=== PATIENT | female | born 1940 | race Caucasian/White ===

== ENCOUNTER → 2018-02-22 09:18 | Outpatient (CLI) | payer OTHER, SELFPAY ==
[2018-02-22 11:18] LABS: Alanine Aminotransferase 68 IU/L (9-52); Albumin 3.9 g/dL (3.5-5.0); Albumin Globulin Ratio 1.3 (1.0-2.8); Alkaline Phosphatase 76 U/L (38-126); Aspartate Aminotransferase 48 IU/L (14-36); Bilirubin Total 0.5 mg/dL (0.2-1.3); Bilirubin Unconjugated 0.3 mg/dL (0.0-1.1); Cholesterol 181 mg/dL (140-199); HDL Cholesterol 44 mg/dL (40-60); HEMOLYSIS < 15 (0-50); LDL Cholesterol Calculated 113 mg/dL (<100); Total Protein 6.9 g/dL (6.3-8.2); Triglycerides 122 mg/dL (35-150)
[2018-02-22 11:58] LABS: Vitamin B12 734 pg/mL (239-931)
== END ==
PROVIDERS: Family Provider Physician Assistant; PCP Physician Assistant; Visit Provider Physician Assistant
DX: E78.5 Hyperlipidemia, unspecified (principal); R42 Dizziness and giddiness; E53.8 Deficiency of other specified B group vitamins; M79.1 Myalgia
CPT/HCPCS: 36415; 80061; 80076; 82607

== ENCOUNTER → 2018-05-09 16:13 | Outpatient (CLI) | payer OTHER, SELFPAY ==
--- NOTE | 2018-05-09 16:19 | DI.RAD.S_ITS ---
PROCEDURE: XR LUMBAR SPINE 2-3V INDICATIONS: Low back pain TECHNIQUE: 3 views of the lumbar spine were acquired. COMPARISON: [facility], CR, XR CHEST 2V, 05/09/2018, 16:15. FINDINGS: Bones: 6 [id number] vertebrae are present. On chest x-ray, there appear to be 12 rib vertebrae. 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 The transverse processes of L1. Elongated on the right. There is accentuated lordosis with mild retrolisthesis at L3-4, anterolisthesis at L4-5 and L5-S1. Multilevel disc narrowing is most marked at L5-S1. There is a rudimentary disc at S1-2. Facet arthropathy is evident at L4-5 and L5-S1. No vertebral body compression fractures. No suspicious bony lesions. Soft tissues: Overlying bowel gas pattern is normal. Vascular calcifications. 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 Mild malalignment and accentuated lordosis. Facet arthropathy and multilevel disc degeneration. Dictated by: Guillaume Erickson M.D. on 05/09/2018 at 16:55 Approved by: Guillaume Erickson M.D. on 05/09/2018 at 17:02
--- NOTE | 2018-05-09 16:19 | DI.RAD.S_ITS ---
PROCEDURE: XR CHEST 2V INDICATIONS: Persistant cough TECHNIQUE: 2 views of the chest were acquired. COMPARISON: None. FINDINGS: Surgical changes and devices: None. Lungs and pleura: No pleural effusions or pneumothorax. Lungs are clear. Mediastinum: Mediastinal contours are normal. Heart size is normal. Tortuous aorta. Bones and chest wall: No suspicious bony abnormalities. Soft tissues appear unremarkable. IMPRESSION: No acute cardiopulmonary abnormality Dictated by: Guillaume Erickson M.D. on 05/09/2018 at 16:54 Approved by: Guillaume Erickson M.D. on 05/09/2018 at 16:55
== END ==
PROVIDERS: Family Provider Physician Assistant; PCP Physician Assistant; Visit Provider Physician Assistant
DX: M47.817 Spondylosis without myelopathy or radiculopathy, lumbosacral region (principal); M47.816 Spondylosis without myelopathy or radiculopathy, lumbar region; M51.37 Other intervertebral disc degeneration, lumbosacral region; M51.36 Other intervertebral disc degeneration, lumbar region; R05 Cough; M54.5 Low back pain; M40.56 Lordosis, unspecified, lumbar region
CPT/HCPCS: 71046; 72100

== ENCOUNTER → 2018-05-15 10:32 | Outpatient (CLI) | payer OTHER, SELFPAY ==
--- NOTE | 2018-05-15 10:34 | DI.RAD.S_ITS ---
PROCEDURE: FL BARIUM SWALLOW INDICATIONS: Persistant cough; chest discomfort COMPARISON: None. FINDINGS: Function: There is normal esophageal peristalsis. No elicited gastroesophageal reflux. Morphology: Air-contrast images demonstrate normal mucosal morphology. Single contrast views show no esophageal strictures, extrinsic mass effects, or diverticula. Limited images of the stomach demonstrate normal appearance. IMPRESSION: Normal examination, no aspiration or reflux found. Dictated by: Sha Byrd M.D. on 05/15/2018 at 14:41 Approved by: Sha Byrd M.D. on 05/15/2018 at 14:42
== END ==
PROVIDERS: Family Provider Physician Assistant; PCP Physician Assistant; Visit Provider Physician Assistant
DX: R05 Cough (principal); R07.89 Other chest pain
CPT/HCPCS: 74220

== ENCOUNTER → 2018-05-22 07:22 | Outpatient (CLI) | payer OTHER, SELFPAY ==
--- NOTE | 2018-05-22 07:26 | DI.MRI.S_ITS ---
PROCEDURE: MR LUMBAR SPINE WO CON INDICATIONS: Severe low back pain radiates into hips TECHNIQUE: Noncontrast sagittal T1 spin echo and T2 fast echo, sagittal STIR, axial T1 and T2 fast spin echo through the lumbar spine. In cases with scoliosis, additional coronal T2 fast spin echo may be performed. COMPARISON: [facility], CR, XR LUMBAR SPINE 2-3V, 05/09/2018, 16:15. FINDINGS: Image quality: Excellent. Alignment and Curvature: 5 lumbar type vertebral bodies are present by plain film. There is exaggerated lordosis. There is mild grade 1 anterolisthesis of L3 on L4, L4 on L5, and L5 on S1. Bone Marrow: Marrow is of normal overall signal. No acute vertebral body compression fractures. There is mild reactive signal within the endplates adjacent to the to L3, L3-L4, L4-L5, and L5-S1 intervertebral discs. Spinal Cord: Conus medullaris terminates at the upper L1 level. Visualized cord demonstrates normal signal and size. Paraspinous Soft Tissues: No paravertebral masses. L1-L2: Mild disc desiccation and minimal diffuse disc bulge. Mild facet hypertrophy. Minimal canal stenosis. No foraminal stenosis. L2-L3: Mild disc desiccation and disc height loss. Mild diffuse disc bulge. Mild facet and ligamentum flavum hypertrophy. Epidural lipomatosis. Mild canal stenosis. No foraminal stenosis. L3-L4: Moderate disc desiccation. Mild disc height loss. Mild diffuse disc bulge. Moderate facet hypertrophy and ligamentum flavum hypertrophy bilaterally. Mild canal stenosis. Mild foraminal stenosis bilaterally. L4-L5: Moderate disc height loss and desiccation. Minimal diffuse disc bulge. Moderate facet hypertrophy bilaterally. No significant canal stenosis. Moderate left and mild right foraminal stenosis. L5-S1: Moderate disc desiccation and mild diffuse disc bulge. Moderate facet hypertrophy bilaterally. Moderate canal stenosis. Mild foraminal stenosis bilaterally. IMPRESSION: 1. Multilevel degenerative disc and facet disease, as well as ligament flavum hypertrophy. 2. Multilevel canal stenoses, worst at L4-L5, where there is moderate canal stenosis present. 3. Multilevel foraminal stenoses, worst on the left at L4-L5, where there is moderate foraminal stenosis. Dictated by: Alvaro Truong M.D. on 05/22/2018 at 11:22 Approved by: Alvaro Truong M.D. on 05/22/2018 at 11:27
[2018-05-24 15:38] LABS: Fecal Immunochemical Test NOT DETECTED
== END ==
PROVIDERS: Family Provider Physician Assistant; PCP Physician Assistant; Visit Provider Physician Assistant
DX: M51.36 Other intervertebral disc degeneration, lumbar region (principal); M51.37 Other intervertebral disc degeneration, lumbosacral region; M54.5 Low back pain; M48.061 Spinal stenosis, lumbar region without neurogenic claudication; M48.07 Spinal stenosis, lumbosacral region; R74.8 Abnormal levels of other serum enzymes; R93.7 Abnormal findings on diagnostic imaging of other parts of musculoskeletal system
CPT/HCPCS: 72148; 82274

== ENCOUNTER → 2018-05-31 08:09 | Outpatient (CLI) | payer OTHER, SELFPAY ==
[2018-05-31 10:01] LABS: Alanine Aminotransferase 25 IU/L (9-52); Albumin 3.8 g/dL (3.5-5.0); Albumin Globulin Ratio 1.4 (1.0-2.8); Alkaline Phosphatase 60 U/L (38-126); Aspartate Aminotransferase 20 IU/L (14-36); Bilirubin Total 0.5 mg/dL (0.2-1.3); Bilirubin Unconjugated 0.3 mg/dL (0.0-1.1); Cholesterol 137 mg/dL (140-199); Globulin 2.7 g/dL (1.7-4.1); HDL Cholesterol 49 mg/dL (40-60); HEMOLYSIS < 15 (0-50); LDL Cholesterol Calculated 67 mg/dL (<100); Total Protein 6.5 g/dL (6.3-8.2); Triglycerides 107 mg/dL (35-150)
== END ==
PROVIDERS: PCP Physician Assistant; Visit Provider Physician Assistant
DX: E78.5 Hyperlipidemia, unspecified (principal); R74.8 Abnormal levels of other serum enzymes
CPT/HCPCS: 36415; 80061; 80076

== ENCOUNTER → 2018-12-18 08:04 | Outpatient (CLI) | payer OTHER, SELFPAY ==
[2018-12-18 08:54] LABS: Alanine Aminotransferase 31 IU/L (9-52); Albumin Globulin Ratio 1.3 (1.0-2.8); Alkaline Phosphatase 61 U/L (38-126); Aspartate Aminotransferase 24 IU/L (14-36); BUN Creatinine Ratio 25.6 (6-22); Bilirubin Total 0.4 mg/dL (0.2-1.3); Blood Urea Nitrogen 23 mg/dL (7-17); Calcium 9.1 mg/dL (8.4-10.2); Carbon Dioxide 28 mmol/L (22-32); Chloride 107 mmol/L (98-107); Estimated Glomerular Filt Rate > 60.0 mL/min (>60); Glucose 102 mg/dL (80-110); Sodium 142 mmol/L (137-145); Uric Acid 4.4 mg/dL (2.5-6.2)
[2018-12-18 08:55] LABS: Cholesterol 151 mg/dL (140-199); HDL Cholesterol 46 mg/dL (40-60); HEMOLYSIS < 15 (0-50); LDL Cholesterol Calculated 83 mg/dL (<100); Triglycerides 109 mg/dL (35-150)
[2018-12-18 09:48] LABS: Thyroid Stimulating Hormone 1.43 uIU/mL (0.47-4.68)
== END ==
PROVIDERS: PCP Physician Assistant; Visit Provider Physician Assistant
DX: E03.9 Hypothyroidism, unspecified (principal); E78.5 Hyperlipidemia, unspecified; E79.0 Hyperuricemia without signs of inflammatory arthritis and tophaceous disease
CPT/HCPCS: 36415; 80053; 80061; 84443; 84550

== ENCOUNTER 2019-10-04 05:08 | Emergency (ER) | payer OTHER, SELFPAY ==
[2019-10-04 05:14] VITALS: BP 162/104; PULSE 64; RESP 20; TEMP 36.9; O2SAT 95
--- NOTE | 2019-10-04 05:14 | DI.RAD.S_ITS ---
PROCEDURE: XR CHEST 1V INDICATIONS: shortness of breath, cough TECHNIQUE: One view of the chest was acquired. COMPARISON: [facility], CR, XR CHEST 2V, 05/09/2018, 16:15. FINDINGS: Surgical changes and devices: None. Lungs and pleura: Minimal increased opacity can be seen involving the inferior right lower lung. The lungs otherwise appear clear. No pneumothorax or pleural effusions are seen. Mediastinum: The cardiac contours are within normal limits. The aorta demonstrates calcification and tortuosity. Bones and chest wall: Age-appropriate bony degenerative changes are seen. No suspicious bony lesions. Overlying soft tissues appear unremarkable. IMPRESSION: Poorly defined right lower lung opacity, likely related to a small amount of right middle lobe infiltrate. Followup chest radiographs are recommended to complete resolution. If this abnormality does not completely resolve on plain film, then a chest CT with contrast would be recommended to evaluate for a potential underlying mass. Note: No significant discrepancy from the preliminary report. Dictated by: Dionte Al M.D. on 10/04/2019 at 8:47 Approved by: Dionte Al M.D. on 10/04/2019 at 8:48
[2019-10-04] MEDS: SODIUM CHLORIDE 0.9% 1,000 ML 1000 ML IV (05:27)
--- NOTE | 2019-10-04 06:19 | ED_ITS ---
HPI - Weakness General Chief complaint: Weakness Stated complaint: Not feeling well Time Seen by Provider: 10/04/19 05:10 Source: patient Mode of arrival: EMS Limitations: no limitations History of Present Illness HPI Narrative: 79-year-old female nonsmoker with history of asthma presents by EMS for evaluation of feeling generally weak this morning. She has been under the weather recently with typical upper respiratory symptoms including some runny nose dry and hacking cough and fatigue. She was seen at the walk-in clinic a few days ago and given bronchodilators and Tessalon Perles. She had no imaging or lab work completed. She has had no chest pain and is not dizzy or lightheaded. She denies nausea, vomiting or diarrhea. She has had no abdominal pain and no urinary complaints such as dysuria, frequency or urgency. MD Complaint: generalized weakness Onset (ago): day(s) Duration: constant Location: generalized Migration: none Severity: mild Exacerbating factors: none Related Data Home Medications Medication Instructions Recorded Confirmed aspirin 81 mg PO QDAY #0 12/05/16 10/02/19 Calcium See Rx Instructions .ROUTE .COMPLEX 05/09/18 10/02/19 Bittinger 3 See Rx Instructions .ROUTE .COMPLEX 05/09/18 10/02/19 Previous Rx's Medication Instructions Recorded allopurinol 100 mg tablet 100 mg PO QDAY #90 tab 12/17/18 levothyroxine 100 mcg tablet 100 mcg PO QAM #90 tab 12/17/18 rosuvastatin 20 mg tablet 20 mg PO HS #90 tab 12/17/18 albuterol sulfate 90 mcg/actuation 1 inh INHALATION Q4-6H PRN #18 gram 10/02/19 aerosol inhaler benzonatate 100 mg capsule 100 mg PO BEDTIME #20 cap 10/02/19 amoxicillin-pot clavulanate 1 tab PO BID #20 tab 10/04/19 [Augmentin] Allergies Allergy/AdvReac Type Severity Reaction Status Date / Time Talwjqk-Gvk-Owl Reductase AdvReac Severe MUSCLE Verified 10/02/19 09:24 Inhibitor ACHES & [[id number] REDUCTASE LIVER INHIBITOR] PROBLEMS Sulfa (Sulfonamide AdvReac Severe RASH ALL Verified 10/02/19 09:24 Antibiotics) OVER BODY [SULFA (SULFONAMIDE ANTIBIOTICS)] trimethoprim [TRIMETHOPRIM] AdvReac Severe SEVERE Verified 10/02/19 09:24 RASH ALL OVER BODY pseudoephedrine AdvReac Intermediate RASH, Verified 10/02/19 09:24 [From SUDAFED] ITCHING AND PEELING ON HANDS AND FEET Review of Systems Constitutional Constitutional: Denies chills, Reports fatigue, Denies fever(s), Denies frequent falls, Denies lethargy and Reports weakness Eyes Eyes: Denies change in vision, Denies eye discharge, Denies irritation and Denies loss of vision ENT Ears, Nose, Mouth, and Throat: Denies change in voice, Denies dizziness, Denies neck pain, Denies sore throat and Denies throat swelling Cardiovascular Cardiovascular: Denies chest pain, Denies irregular heart rhythm, Denies lightheadedness, Denies palpitations, Denies dyspnea, Denies dyspnea on exertion and Denies orthopnea Respiratory Respiratory: Reports cough, Denies dyspnea, Denies dyspnea on exertion and Denies wheezing Gastrointestinal Gastrointestinal: Denies abdominal pain, Denies change in bowel habits, Denies diarrhea, Denies nausea and Denies vomiting Genitourinary Genitourinary: Denies hematuria, Denies flank pain, Denies urinary incontinence and Denies urinary urgency Musculoskeletal Musculoskeletal: Denies back pain, Denies muscle weakness, Denies neck pain, Denies numbness and Denies tingling Integumentary/Breasts Skin/Breast: Denies pruritus, Denies erythema, Denies rash and Denies wounds Neurologic Neurologic: Denies behavioral changes, Denies confusion, Denies dizziness, Denies frequent falls, Denies loss of vision, Denies numbness, Denies tingling and Reports weakness Psychiatric Psychiatric: Denies anxiety, Denies behavioral changes, Denies confusion, Denies depression, Denies homicidal ideation and Denies suicidal ideation Endocrine Endocrine: Reports fatigue, Denies flushing and Denies palpitations Hematologic/Lymphatic Hematologic/Lymphatic: Denies easy bruising Allergic/Immunologic Allergic/Immunologic: Denies urticaria, Denies throat swelling and Denies wheezing Patient History Medical History Back pain (Chronic) Gout (Chronic) Hyperlipemia (Chronic) Hypothyroidism (Chronic) Osteopenia (Chronic ~2016) Polio (Resolved 1944) Spinal stenosis (Chronic) Surgical History Status post appendectomy Family History Father Heart disease Hyperlipidemia Mother Hypertension Social History Smoking Status: Never smoker alcohol intake: never substance use type: does not use Smoking Status: Never smoker Substance Use Type: does not use Exam Narrative Exam Narrative: GENERAL: [79] year old patient appears stated age. Well- nourished, well-developed patient, in mild distress. Very weak. Requires significant assistance. Sneezing, frequent dry and hacking cough HEAD: Atraumatic. Normocephalic. EYES: Pupils equal round and reactive. Extraocular motions intact. No scleral icterus. No injection or drainage. ENT: Nose without bleeding, purulent drainage. Throat without erythema, tonsillar hypertrophy or exudate. Airway patent. NECK: Trachea midline. Non tender CARDIOVASCULAR: Regular rate and rhythm without murmurs, gallops, or rubs. RESPIRATORY: Crackles in R base. GASTROINTESTINAL: Abdomen soft, non-tender, nondistended. EXTREMITIES: No edema or joint tenderness. BACK: Nontender without deformity or crepitance. No flank tenderness. NEURO: AOx3. SKIN: No rash or erythema of visible areas Initial Vital Signs Initial Vital Signs: Vital Signs Temperature 98.4 F 10/04/19 05:14 Pulse Rate 64 10/04/19 05:14 Respiratory Rate 10/04/19 05:14 Blood Pressure 162/104 H 10/04/19 05:14 Pulse Oximetry 95 10/04/19 05:14 Scores CURB-65 Confusion: No BUN >19mg/dL (>7mmol/L): No Respiratory rate greater or equal to 30: No SBP <90mmHg or DBP less or equal to 60mmHg: No Age 65 or Older: Yes CURB-65 Total: 1 Score 0-1 Outpatient care, Score 2 Inpt vs. Obs, Score 3 or over Inpt admit with ICU for score of 4-5 Course Orders Ordered: ED Orders 10/04/19 05:14 XR chest 1V Stat EKG-12 Lead Stat 10/04/19 05:16 Influenza A & B (PCR) Stat Respiratory Panel (Film Array) Stat 10/04/19 05:46 Blood Culture Stat 10/04/19 06:10 B Type Natriuretic Peptide Stat Basic Metabolic Panel Stat Complete Blood Count AUTO DIFF Stat Procalcitonin Stat Troponin & CK Cardiac Panel Stat 10/04/19 06:40 Urinalysis and Microscopic Stat Discontinued Medications Amoxicillin/Clavulanate Potassium (Augmentin 875-125 Mg) 1 tab PO NOW ONE Stop: 10/04/19 06:45 Last Admin: 10/04/19 06:54 Dose: 1 tab Documented by: JUAN Sodium Chloride (Normal Saline 0.9%) 1,000 mls @ 1,000 mls/hr IV BOLUS ONE Stop: 10/04/19 06:11 Last Admin: 10/04/19 05:27 Dose: 1,000 mls/hr Documented by: RISA Ceftriaxone Sodium/Dextrose (Rocephin) 1 gm in 50 mls @ 100 mls/hr IV NOW ONE Stop: 10/04/19 06:57 Azithromycin 500 mg/ Dextrose 250 mls @ 250 mls/hr IV NOW ONE Stop: 10/04/19 06:34 Reevaluation(s) Reevaluation #1: patient feeling much more strength after fluids, able to ambulate to the bathroom no signs of sepsis. No oxygen requirements. No signs of sepsis. Curb 65 low. Patient and are in full agreement and understanding of the plan as evidenced by the ability to verbalize it back. Return precautions given. Questions answered to their apparent satisfaction Vital Signs Vital signs: Vital Signs - 8 hr 10/04/19 05:14 10/04/19 07:00 Temperature 98.4 F Pulse Rate 64 58 L Respiratory Rate 20 17 Blood Pressure 162/104 H Blood Pressure [Left Arm] 142/66 H Pulse Oximetry 95 96 MDM - Weakness Lab Data Result diagrams: 10/04/19 06:10 10/04/19 06:10 Labs: Lab Results 10/04/19 10/04/19 10/04/19 Range/Units 05:16 06:10 06:10 WBC 10.6 (4.5-11.0) X10^3/uL RBC 4.23 (4.0-5.2) X10^6/uL Hgb 13.1 (12.0-16.0) g/dL Hct 38.6 (36-46) % MCV 91.5 (80-100) fL MCH 31.1 (26-34) PG MCHC 34.0 (30-36) % RDW 14.4 (11.6-14.8) % Plt Count 238 (150-400) X10^3/uL Neut % (Auto) 73.5 (50-75) % Lymph % (Auto) 15.4 L (25-40) % [place] % (Auto) 8.2 (3-14) % Eos % (Auto) 2.3 (2-4) % Baso % (Auto) 0.6 (0-2) % Neut # (Auto) 7800 H (2610-1610) /uL Lymph # (Auto) 1600 (4240-8392) /uL [place] # (Auto) 900 (0-900) /uL Eos # (Auto) 200 (0-450) /uL Baso # (Auto) 100 (0-100) /uL Sodium 141 (137-145) mmol/L Potassium 4.0 (3.4-5.1) mmol/L Chloride 106 (98-107) mmol/L Carbon Dioxide 29 (22-32) mmol/L BUN 15 (7-17) mg/dL Creatinine 0.90 (0.52-1.04) mg/dL Estimated GFR > 60.0 (>60) mL/min BUN/Creatinine Ratio 16.7 (6-22) Glucose 107 (80-110) mg/dL Calcium 8.8 (8.4-10.2) mg/dL Total Creatine Kinase 132 (30-135) U/L CK-MB (CK-2) 0.36 (<2.37) ng/mL CK-MB (CK-2) Rel Index 0.3 L (1.5-5.0) % Troponin I < 0.012 (0.01-0.034) ng/mL B-Natriuretic Peptide < 100 (<100) Procalcitonin (<0.5) ng/mL Urine Color Urine Appearance Urine pH (4.5-8.0) Ur Specific [place] (1.000-1.035) Urine Protein (Negative) Urine Glucose (UA) (Negative) g/dL Urine Ketones (NEGATIVE) Urine Occult Blood (Negative) Urine Nitrate (Negative) Urine Bilirubin (NEGATIVE) Urine Urobilinogen (0.2) E.U./dL Ur Leukocyte Esterase (NEGATIVE) Influenza A (RT-PCR) Flu a negative (NEGATIVE) Influenza B (RT-PCR) Flu b negative (NEGATIVE) 10/04/19 10/04/19 Range/Units 06:10 06:40 WBC (4.5-11.0) X10^3/uL RBC (4.0-5.2) X10^6/uL Hgb (12.0-16.0) g/dL Hct (36-46) % MCV (80-100) fL MCH (26-34) PG MCHC (30-36) % RDW (11.6-14.8) % Plt Count (150-400) X10^3/uL Neut % (Auto) (50-75) % Lymph % (Auto) (25-40) % [place] % (Auto) (3-14) % Eos % (Auto) (2-4) % Baso % (Auto) (0-2) % Neut # (Auto) (7752-8973) /uL Lymph # (Auto) (0871-2441) /uL [place] # (Auto) (0-900) /uL Eos # (Auto) (0-450) /uL Baso # (Auto) (0-100) /uL Sodium (137-145) mmol/L Potassium (3.4-5.1) mmol/L Chloride (98-107) mmol/L Carbon Dioxide (22-32) mmol/L BUN (7-17) mg/dL Creatinine (0.52-1.04) mg/dL Estimated GFR (>60) mL/min BUN/Creatinine Ratio (6-22) Glucose (80-110) mg/dL Calcium (8.4-10.2) mg/dL Total Creatine Kinase (30-135) U/L CK-MB (CK-2) (<2.37) ng/mL CK-MB (CK-2) Rel Index (1.5-5.0) % Troponin I (0.01-0.034) ng/mL B-Natriuretic Peptide (<100) Procalcitonin < 0.05 (<0.5) ng/mL Urine Color Yellow Urine Appearance Clear Urine pH 7.0 (4.5-8.0) Ur Specific [place] <=1.005 (1.000-1.035) Urine Protein Negative (Negative) Urine Glucose (UA) Negative (Negative) g/dL Urine Ketones Negative (NEGATIVE) Urine Occult Blood Trace-lysed (Negative) Urine Nitrate Negative (Negative) Urine Bilirubin Negative (NEGATIVE) Urine Urobilinogen 0.2 (0.2) E.U./dL Ur Leukocyte Esterase 1+ H (NEGATIVE) Influenza A (RT-PCR) (NEGATIVE) Influenza B (RT-PCR) (NEGATIVE) Discharge Plan Departure Patient Disposition: Home Clinical Impression: Pneumonia Qualifiers: Pneumonia type: due to unspecified organism Laterality: right Lung location: middle lobe of lung Qualified Code(s): J18.9 - Pneumonia, unspecified organism Instructions: DI for Pneumonia -- Adult Activity Restrictions/Additional Instructions: *You have been diagnosed with [acute community-acquired pneumonia] *What to do: *Take medications as directed *Follow up with your primary care provider in 2-3 days, call for an appointment. Let them know you were seen in the Emergency Department and that we ask that you be seen in follow up *Return to ER if you should have any new, worsening or concerning symptoms Prescriptions: New amoxicillin-pot clavulanate [Augmentin] 875-125 mg tablet 1 tab PO BID Qty: 20 RF: 0 No Action allopurinol 100 mg tablet 100 mg PO QDAY Qty: 90 RF: 3 levothyroxine 100 mcg tablet 100 mcg PO QAM Qty: 90 RF: 3 rosuvastatin 20 mg tablet 20 mg PO HS Qty: 90 RF: 3 albuterol sulfate 90 mcg/actuation HFA aerosol inhaler 1 inh INHALATION Q4-6H PRN (Reason: shortness of breath) Qty: 18 RF: 0 benzonatate 100 mg capsule 100 mg PO BEDTIME Qty: 20 RF: 0 Calcium See Rx Instructions .ROUTE .COMPLEX RF: 0 Bittinger 3 See Rx Instructions .ROUTE .COMPLEX RF: 0 aspirin 81 MG tablet,delayed release (DR/EC) 81 mg PO QDAY Qty: 0 RF: 0 Referrals: Elsa Bateman PA-C [Primary Care Provider] -
[2019-10-04 06:25] LABS: Add Manual Diff / Slide Review NO; Basophils Absolute Auto 100 /uL (0-100); Basophils Percent Auto 0.6 % (0-2); Eosinophils Absolute Auto 200 /uL (0-450); Eosinophils Percent Auto 2.3 % (2-4); Hematocrit 38.6 % (36-46); Hemoglobin 13.1 g/dL (12.0-16.0); Lymphocytes Absolute Auto 1600 /uL (1100-4500); Lymphocytes Percent Auto 15.4 % (25-40); Mean Corpuscular Hemoglobin 31.1 PG (26-34); Mean Corpuscular Volume 91.5 fL (80-100); Monocytes Absolute Auto 900 /uL (0-900); Monocytes Percent Auto 8.2 % (3-14); Neutrophils Absolute Auto 7800 /uL (1500-7000); Neutrophils Percent Auto 73.5 % (50-75); Platelet Count 238 X10^3/uL (150-400); Red Blood Cell Count 4.23 X10^6/uL (4.0-5.2); Red Cell Distribution Width 14.4 % (11.6-14.8); White Blood Cell Count 10.6 X10^3/uL (4.5-11.0)
[2019-10-04 06:25] LABS: Influenza A - CEPHEID Flu A NEGATIVE (NEGATIVE); Influenza B - CEPHEID Flu B NEGATIVE (NEGATIVE)
[2019-10-04 06:26] LABS: BUN Creatinine Ratio 16.7 (6-22); Blood Urea Nitrogen 15 mg/dL (7-17); Calcium 8.8 mg/dL (8.4-10.2); Carbon Dioxide 29 mmol/L (22-32); Chloride 106 mmol/L (98-107); Creatine Kinase 132 U/L (30-135); Estimated Glomerular Filt Rate > 60.0 mL/min (>60); Glucose 107 mg/dL (80-110); HEMOLYSIS 16 (0-50); Sodium 141 mmol/L (137-145)
[2019-10-04 06:38] LABS: Troponin I < 0.012 ng/mL (0.01-0.034)
[2019-10-04 06:41] LABS: CKMB % Relative Index 0.3 % (1.5-5.0); Creatine Kinase MB 0.36 ng/mL (<2.37)
[2019-10-04 06:45] LABS: B Type Natriuretic Peptide < 100 (<100)
[2019-10-04 06:48] LABS: Bacteria Urine None Seen; RBC Urine None Seen (0-5/HPF)
[2019-10-04 06:49] LABS: Appearance Urine UA CLEAR; Bilirubin Urine UA NEGATIVE (NEGATIVE); Color Urine UA YELLOW; Glucose Urine UA NEGATIVE (Negative); Ketones Urine UA NEGATIVE (NEGATIVE); Leukocyte Esterase Urine UA 1+ (NEGATIVE); Nitrite Urine UA NEGATIVE (Negative); Occult Blood Urine UA TRACE-LYSED (Negative); Protein Urine UA NEGATIVE (Negative); Specific Gravity Urine UA <=1.005 (1.000-1.035); Urobilinogen Urine UA 0.2 E.U./dL (0.2)
[2019-10-04] MEDS: AMOXICILLIN/CLAV 875/125 MG 1 TAB PO (06:54)
[2019-10-04 07:00] VITALS: BP 142/66; PULSE 58; RESP 17; O2SAT 96
[2019-10-04 07:06] LABS: Procalcitonin < 0.05 ng/mL (<0.5)
[2019-10-04 07:30] LABS: Culture Indicated Urine Specimen Cultured; WBC Urine 1-5/HPF (0-5/HPF)
[2019-10-04 08:23] LABS: Adenovirus Not Detected (Not Detect); Bordetella pertussis Not Detected (Not Detect); Chlamydophila pneumoniae Not Detected (Not Detect); Coronavirus 229E Not Detected (Not Detect); Coronavirus HKU1 Not Detected (Not Detect); Coronavirus NL 63 Not Detected (Not Detect); Coronavirus OC43 Not Detected (Not Detect); Human Metapneumovirus Not Detected (Not Detect); Human Rhinovirus/Enterovirus Not Detected (Not Detect); Influenza A Not Detected (Not Detect); Influenza B Not Detected (Not Detect); Mycoplasma pneumoniae Not Detected (Not Detect); Parainfluenza Virus 1 Not Detected (Not Detect); Parainfluenza Virus 2 Not Detected (Not Detect); Parainfluenza Virus 3 Not Detected (Not Detect); Parainfluenza Virus 4 Not Detected (Not Detect); Respiratory Syncytial Virus Not Detected (Not Detect)
== END 2019-10-04 07:40 | disposition home or self-care (01) ==
PROVIDERS: Nurse Practitioner Adult Health; Emergency Provider Emergency Medicine; PCP Physician Assistant
DX: J18.9 Pneumonia, unspecified organism (principal); R03.0 Elevated blood-pressure reading, without diagnosis of hypertension
CPT/HCPCS: 36415; 71045; 80048; 81001; 82550; 82553; 83880; 84145; 84484; 85025; 87040; 87086; 87502; 87633; 93005; 96360; 96361; 99284; 99285

== ENCOUNTER 2019-10-09 11:33 | Emergency (ER) | payer OTHER, SELFPAY ==
[2019-10-09 11:41] VITALS: BP 149/85; PULSE 66; RESP 18; TEMP 36.4; O2SAT 99; BMI 46.0
--- NOTE | 2019-10-09 11:48 | ED_ITS ---
HPI - URI/Sore Throat General Chief Complaint: Upper Respiratory Symptoms Stated Complaint: FOLLOW UP ON PNEUMONIA NOT GETTING BETTER Time Seen by Provider: 10/09/19 11:35 Source: patient and family Mode of arrival: Family Vehicle Limitations: no limitations History of Present Illness HPI Narrative: 79-year-old female nonsmoker with recent diagnosis of pneumonia and treatment with antibiotics returns with her for a repeat evaluation. She states that her respiratory status is greatly improved but she still feels fatigued and isn't back to normal yet. She denies nausea or vomiting but does states she has a slightly decreased appetite. She has been drinking plenty of water denies any fever or shaking chills. She has had no change in her bowel habits. MD Complaint: other Onset (ago): hour(s) Duration: constant Severity: mild Relieving factors: nothing Exacerbating factors: nothing Able to tolerate fluids by mouth: Yes Treatments prior to arrival: none Related Data Home Medications Medication Instructions Recorded Confirmed aspirin 81 mg PO QDAY #0 12/05/16 10/02/19 Calcium See Rx Instructions .ROUTE .COMPLEX 05/09/18 10/02/19 [place] 3 See Rx Instructions .ROUTE .COMPLEX 05/09/18 10/02/19 Previous Rx's Medication Instructions Recorded allopurinol 100 mg tablet 100 mg PO QDAY #90 tab 12/17/18 levothyroxine 100 mcg tablet 100 mcg PO QAM #90 tab 12/17/18 rosuvastatin 20 mg tablet 20 mg PO HS #90 tab 12/17/18 albuterol sulfate 90 mcg/actuation 1 inh INHALATION Q4-6H PRN #18 gram 10/02/19 aerosol inhaler benzonatate 100 mg capsule 100 mg PO BEDTIME #20 cap 10/02/19 amoxicillin-pot clavulanate 1 tab PO BID #20 tab 10/04/19 [Augmentin] Allergies Allergy/AdvReac Type Severity Reaction Status Date / Time Vtndvup-Mgj-Bxs Reductase AdvReac Severe MUSCLE Verified 10/09/19 12:49 Inhibitor ACHES & [[id number]-VCN-XWQ REDUCTASE LIVER INHIBITOR] PROBLEMS Sulfa (Sulfonamide AdvReac Severe RASH ALL Verified 10/09/19 12:49 Antibiotics) OVER BODY [SULFA (SULFONAMIDE ANTIBIOTICS)] trimethoprim [TRIMETHOPRIM] AdvReac Severe SEVERE Verified 10/09/19 12:49 RASH ALL OVER BODY pseudoephedrine AdvReac Intermediate RASH, Verified 10/09/19 12:49 [From SUDAFED] ITCHING AND PEELING ON HANDS AND FEET Review of Systems Constitutional Constitutional: Denies chills, Denies fatigue, Denies fever(s), Denies frequent falls, Denies lethargy and Reports weakness Eyes Eyes: Denies change in vision, Denies eye discharge, Denies irritation and Denies loss of vision ENT Ears, Nose, Mouth, and Throat: Denies change in voice, Denies dizziness, Denies neck pain, Denies sore throat and Denies throat swelling Cardiovascular Cardiovascular: Denies chest pain, Denies irregular heart rhythm, Denies lightheadedness, Denies palpitations, Denies dyspnea, Denies dyspnea on exertion and Denies orthopnea Respiratory Respiratory: Denies cough, Denies dyspnea, Denies dyspnea on exertion and Denies wheezing Gastrointestinal Gastrointestinal: Denies abdominal pain, Denies change in bowel habits, Denies diarrhea, Denies nausea and Denies vomiting Genitourinary Genitourinary: Denies hematuria, Denies flank pain, Denies urinary incontinence and Denies urinary urgency Musculoskeletal Musculoskeletal: Denies back pain, Denies muscle weakness, Denies neck pain, Denies numbness and Denies tingling Integumentary/Breasts Skin/Breast: Denies pruritus, Denies erythema, Denies rash and Denies wounds Neurologic Neurologic: Denies behavioral changes, Denies confusion, Denies dizziness, Denies frequent falls, Denies loss of vision, Denies numbness, Denies tingling and Reports weakness Psychiatric Psychiatric: Denies anxiety, Denies behavioral changes, Denies confusion, Denies depression, Denies homicidal ideation and Denies suicidal ideation Endocrine Endocrine: Denies fatigue, Denies flushing and Denies palpitations Hematologic/Lymphatic Hematologic/Lymphatic: Denies easy bruising Allergic/Immunologic Allergic/Immunologic: Denies urticaria, Denies throat swelling and Denies wheezing Patient History Medical History Back pain (Chronic) Gout (Chronic) Hyperlipemia (Chronic) Hypothyroidism (Chronic) Osteopenia (Chronic ~2016) Polio (Resolved 1944) Spinal stenosis (Chronic) Surgical History Status post appendectomy Family History Father Heart disease Hyperlipidemia Mother Hypertension Social History Smoking Status: Never smoker alcohol intake: never substance use type: does not use Smoking Status: Never smoker Substance Use Type: does not use Exam Narrative Exam Narrative: GENERAL: [79] year old patient appears stated age. Well- nourished, well-developed patient, in mild distress. Perhaps a bit anxious HEAD: Atraumatic. Normocephalic. EYES: Pupils equal round and reactive. Extraocular motions intact. No scleral icterus. No injection or drainage. ENT: Nose without bleeding, purulent drainage. Throat without erythema, tonsillar hypertrophy or exudate. Airway patent. NECK: Trachea midline. Non tender CARDIOVASCULAR: Regular rate and rhythm without murmurs, gallops, or rubs. RESPIRATORY: Clear to auscultation. Breath sounds equal bilaterally. No wheezes, rales, or rhonchi. GASTROINTESTINAL: Abdomen soft, non-tender, nondistended. EXTREMITIES: No edema or joint tenderness. BACK: Nontender without deformity or crepitance. No flank tenderness. NEURO: AOx3. SKIN: No rash or erythema of visible areas Initial Vital Signs Initial Vital Signs: Vital Signs Temperature 97.5 F L 10/09/19 11:41 Pulse Rate 66 10/09/19 11:41 Respiratory Rate 18 10/09/19 11:41 Blood Pressure 149/85 H 10/09/19 11:41 Pulse Oximetry 99 10/09/19 11:41 Course Course Course Narrative: Patient returns for re-evaluation and has a very reassuring history, physical and lab evaluation. There are no signs of sepsis or respiratory distress. I talked to her about increasing her diet and considering probiotics. She and her have had their questions answered to their apparent satisfaction Orders Ordered: ED Orders 10/09/19 12:45 Basic Metabolic Panel Stat Lactate (Lactic Acid) Stat 10/09/19 13:26 B Type Natriuretic Peptide Stat Complete Blood Count AUTO DIFF Stat Procalcitonin Stat Discontinued Medications Sodium Chloride (Normal Saline 0.9%) 1,000 mls @ 1,000 mls/hr IV BOLUS ONE Stop: 10/09/19 13:15 Last Infusion: 10/09/19 14:13 Dose: 0 mls/hr Documented by: Admin: 10/09/19 13:25 Dose: 1,000 mls/hr Documented by: JUAN Vital Signs Vital signs: Vital Signs - 8 hr 10/09/19 11:41 10/09/19 12:00 10/09/19 12:32 Temperature 97.5 F L Pulse Rate 66 57 L 55 L Respiratory Rate 18 Blood Pressure 149/85 H Blood Pressure [Left Arm] 154/84 H 138/70 Pulse Oximetry 99 97 93 10/09/19 14:17 Temperature Pulse Rate Respiratory Rate Blood Pressure Blood Pressure [Left Arm] 147/73 H Pulse Oximetry 97 MDM - URI/Sore Throat Lab Data Result diagrams: 10/09/19 13:26 10/09/19 12:45 Labs: Lab Results 10/09/19 10/09/19 10/09/19 Range/Units 12:45 12:45 13:26 WBC 10.4 (4.5-11.0) X10^3/uL RBC 4.31 (4.0-5.2) X10^6/uL Hgb 13.6 (12.0-16.0) g/dL Hct 38.9 (36-46) % MCV 90.2 (80-100) fL MCH 31.5 (26-34) PG MCHC 34.9 (30-36) % RDW 13.8 (11.6-14.8) % Plt Count 300 (150-400) X10^3/uL Neut % (Auto) 75.1 H (50-75) % Lymph % (Auto) 16.7 L (25-40) % [place] % (Auto) 6.4 (3-14) % Eos % (Auto) 1.2 L (2-4) % Baso % (Auto) 0.6 (0-2) % Neut # (Auto) 7800 H (1366-7320) /uL Lymph # (Auto) 1700 (0637-5775) /uL [place] # (Auto) 700 (0-900) /uL Eos # (Auto) 100 (0-450) /uL Baso # (Auto) 100 (0-100) /uL Sodium 139 (137-145) mmol/L Potassium 4.1 (3.4-5.1) mmol/L Chloride 106 (98-107) mmol/L Carbon Dioxide 27 (22-32) mmol/L BUN 18 H (7-17) mg/dL Creatinine 0.80 (0.52-1.04) mg/dL Estimated GFR > 60.0 (>60) mL/min BUN/Creatinine Ratio 22.5 H (6-22) Glucose 130 H (80-110) mg/dL Lactate 1.3 (0.7-2.1) mmol/L Calcium 9.1 (8.4-10.2) mg/dL B-Natriuretic Peptide < 100 (<100) Procalcitonin (<0.5) ng/mL 10/09/19 Range/Units 13:26 WBC (4.5-11.0) X10^3/uL RBC (4.0-5.2) X10^6/uL Hgb (12.0-16.0) g/dL Hct (36-46) % MCV (80-100) fL MCH (26-34) PG MCHC (30-36) % RDW (11.6-14.8) % Plt Count (150-400) X10^3/uL Neut % (Auto) (50-75) % Lymph % (Auto) (25-40) % [place] % (Auto) (3-14) % Eos % (Auto) (2-4) % Baso % (Auto) (0-2) % Neut # (Auto) (1814-0153) /uL Lymph # (Auto) (0969-1169) /uL [place] # (Auto) (0-900) /uL Eos # (Auto) (0-450) /uL Baso # (Auto) (0-100) /uL Sodium (137-145) mmol/L Potassium (3.4-5.1) mmol/L Chloride (98-107) mmol/L Carbon Dioxide (22-32) mmol/L BUN (7-17) mg/dL Creatinine (0.52-1.04) mg/dL Estimated GFR (>60) mL/min BUN/Creatinine Ratio (6-22) Glucose (80-110) mg/dL Lactate (0.7-2.1) mmol/L Calcium (8.4-10.2) mg/dL B-Natriuretic Peptide (<100) Procalcitonin < 0.05 (<0.5) ng/mL Discharge Plan Departure Patient Disposition: Home Clinical Impression: Weakness Discharge Date/Time: 10/09/19 14:26 Instructions: DI for Fatigue Activity Restrictions/Additional Instructions: *You have been diagnosed with [generalized fatigue, re-evaluation for pneumonia] *What to do: *Continue to take medications as directed *Follow up with your primary care provider in 2-3 days, call for an appointment. Let them know you were seen in the Emergency Department and that we ask that you be seen in follow up *Return to ER if you should have any new, worsening or concerning symptoms Prescriptions: No Action allopurinol 100 mg tablet 100 mg PO QDAY Qty: 90 RF: 3 levothyroxine 100 mcg tablet 100 mcg PO QAM Qty: 90 RF: 3 rosuvastatin 20 mg tablet 20 mg PO HS Qty: 90 RF: 3 albuterol sulfate 90 mcg/actuation HFA aerosol inhaler 1 inh INHALATION Q4-6H PRN (Reason: shortness of breath) Qty: 18 RF: 0 benzonatate 100 mg capsule 100 mg PO BEDTIME Qty: 20 RF: 0 Calcium See Rx Instructions .ROUTE .COMPLEX RF: 0 [place] 3 See Rx Instructions .ROUTE .COMPLEX RF: 0 aspirin 81 MG tablet,delayed release (DR/EC) 81 mg PO QDAY Qty: 0 RF: 0 amoxicillin-pot clavulanate [Augmentin] 875-125 mg tablet 1 tab PO BID Qty: 20 RF: 0 Referrals: Elsa Bateman PA-C [Primary Care Provider] -
[2019-10-09 12:00] VITALS: BP 154/84; PULSE 57; O2SAT 97
[2019-10-09 12:32] VITALS: BP 138/70; PULSE 55; O2SAT 93
[2019-10-09 13:09] LABS: BUN Creatinine Ratio 22.5 (6-22); Blood Urea Nitrogen 18 mg/dL (7-17); Calcium 9.1 mg/dL (8.4-10.2); Carbon Dioxide 27 mmol/L (22-32); Chloride 106 mmol/L (98-107); Estimated Glomerular Filt Rate > 60.0 mL/min (>60); Glucose 130 mg/dL (80-110); Sodium 139 mmol/L (137-145)
[2019-10-09 13:10] LABS: HEMOLYSIS 87 (0-50); Lactate (Lactic Acid) 1.3 mmol/L (0.7-2.1)
[2019-10-09 13:11] LABS: Potassium 4.1 mmol/L (3.4-5.1)
[2019-10-09] MEDS: SODIUM CHLORIDE 0.9% 1,000 ML 1000 ML IV (13:25)
[2019-10-09 13:35] LABS: Procalcitonin < 0.05 ng/mL (<0.5)
[2019-10-09 13:37] LABS: Add Manual Diff / Slide Review NO; Basophils Absolute Auto 100 /uL (0-100); Basophils Percent Auto 0.6 % (0-2); Eosinophils Absolute Auto 100 /uL (0-450); Eosinophils Percent Auto 1.2 % (2-4); Hematocrit 38.9 % (36-46); Hemoglobin 13.6 g/dL (12.0-16.0); Lymphocytes Absolute Auto 1700 /uL (1100-4500); Lymphocytes Percent Auto 16.7 % (25-40); Mean Corpuscular HGB Conc 34.9 % (30-36); Mean Corpuscular Hemoglobin 31.5 PG (26-34); Mean Corpuscular Volume 90.2 fL (80-100); Monocytes Absolute Auto 700 /uL (0-900); Monocytes Percent Auto 6.4 % (3-14); Neutrophils Absolute Auto 7800 /uL (1500-7000); Neutrophils Percent Auto 75.1 % (50-75); Platelet Count 300 X10^3/uL (150-400); Red Blood Cell Count 4.31 X10^6/uL (4.0-5.2); Red Cell Distribution Width 13.8 % (11.6-14.8); White Blood Cell Count 10.4 X10^3/uL (4.5-11.0)
[2019-10-09 13:52] LABS: B Type Natriuretic Peptide < 100 (<100)
[2019-10-09 14:17] VITALS: BP 147/73; O2SAT 97
== END 2019-10-09 14:26 | disposition home or self-care (01) ==
PROVIDERS: Emergency Provider Emergency Medicine; PCP Physician Assistant
DX: R53.1 Weakness (principal)
CPT/HCPCS: 36415; 80048; 83605; 83880; 84145; 85025; 96360; 99284

== ENCOUNTER → 2019-10-29 10:20 | Outpatient (CLI) | payer OTHER, SELFPAY ==
--- NOTE | 2019-10-29 10:23 | DI.RAD.S_ITS ---
PROCEDURE: XR CHEST 2V INDICATIONS: Follow up on resolution of possible pneumonia TECHNIQUE: 2 views of the chest were acquired. COMPARISON: [facility], CR, XR CHEST 1V, 10/04/2019, 5:21. [facility], CR, XR CHEST 2V, 05/09/2018, 16:15. FINDINGS: Surgical changes and devices: None. Lungs and pleura: Lungs are clear. No pleural effusions or pneumothorax. Mediastinum: Mediastinal contours are normal. Heart size is normal. Bones and chest wall: No suspicious bony abnormalities. Soft tissues appear unremarkable. IMPRESSION: Normal for age, source of current pneumonia symptoms is not seen. Dictated by: Sha Byrd M.D. on 10/29/2019 at 12:08 Approved by: Sha Byrd M.D. on 10/29/2019 at 12:08
--- NOTE | 2019-10-29 10:23 | DI.MG.S_ITS ---
BILATERAL DIGITAL SCREENING MAMMOGRAM 3D/2D WITH CAD: 10/29/2019 CLINICAL: Routine screening. Comparison is made to exams dated: 12/12/2016 mammogram and 10/28/2015 mammogram - [facility]. There are scattered fibroglandular elements in both breasts. Current study was also evaluated with a Computer Aided Detection (CAD) system. No significant masses, calcifications, or other findings are seen in either breast. There has been no significant interval change. IMPRESSION: NEGATIVE There is no mammographic evidence of malignancy. A 1 year screening mammogram is recommended. This exam was interpreted at Station ID: [id number]. NOTE: For mammograms, a report in lay terms will be sent to the patient. Approximately 15% of breast malignancies will not be visualized mammographically. In the management of a palpable breast mass, a negative mammogram must not discourage biopsy of a clinically suspicious lesion. Electronically Signed By: Ne guillen/tori:10/29/2019 19:13:21 letter sent: Normal Exam ACR BI-RADS Category 1: Negative 3341F
[2019-10-29 12:08] LABS: Alanine Aminotransferase 19 IU/L (<35); Albumin Globulin Ratio 1.2 (1.0-2.8); Alkaline Phosphatase 73 U/L (38-126); Aspartate Aminotransferase 25 IU/L (14-36); Bilirubin Total 0.5 mg/dL (0.2-1.3); Blood Urea Nitrogen 18 mg/dL (7-17); Calcium 9.4 mg/dL (8.4-10.2); Carbon Dioxide 24 mmol/L (22-32); Chloride 104 mmol/L (98-107); Cholesterol 149 mg/dL (140-199); Estimated Glomerular Filt Rate > 60.0 mL/min (>60); Globulin 3.4 g/dL (1.7-4.1); Glucose 110 mg/dL (80-110); HDL Cholesterol 37 mg/dL (40-60); HEMOLYSIS < 15 (0-50); LDL Cholesterol Calculated 84 mg/dL (<100); Sodium 141 mmol/L (137-145); Total Protein 7.4 g/dL (6.3-8.2); Triglycerides 139 mg/dL (35-150); Uric Acid 4.6 mg/dL (2.5-6.2)
[2019-10-29 12:25] LABS: Vitamin D 25 Hydroxy (D3) 41.5 ng/mL (30.0-100.0)
[2019-10-29 12:39] LABS: Thyroid Stimulating Hormone 0.92 uIU/mL (0.47-4.68)
== END ==
PROVIDERS: PCP Physician Assistant; Visit Provider Physician Assistant
DX: Z12.31 Encounter for screening mammogram for malignant neoplasm of breast (principal); R91.8 Other nonspecific abnormal finding of lung field; E03.9 Hypothyroidism, unspecified; E78.5 Hyperlipidemia, unspecified; E79.0 Hyperuricemia without signs of inflammatory arthritis and tophaceous disease; M85.80 Other specified disorders of bone density and structure, unspecified site
CPT/HCPCS: 36415; 71046; 77063; 77067; 80053; 80061; 82306; 84443; 84550

== ENCOUNTER → 2020-04-15 07:37 | Outpatient (CLI) | payer OTHER, SELFPAY ==
[2020-04-15 09:22] LABS: Alanine Aminotransferase 18 IU/L (<35); Albumin 3.9 g/dL (3.5-5.0); Albumin Globulin Ratio 1.5 (1.0-2.8); Alkaline Phosphatase 72 U/L (38-126); Aspartate Aminotransferase 23 IU/L (14-36); Bilirubin Total 0.5 mg/dL (0.2-1.3); Bilirubin Unconjugated 0.5 mg/dL (0.0-1.1); Cholesterol 140 mg/dL (140-199); Globulin 2.6 g/dL (1.7-4.1); HDL Cholesterol 39 mg/dL (40-60); HEMOLYSIS < 15 (0-50); LDL Cholesterol Calculated 71 mg/dL (<100); Total Protein 6.5 g/dL (6.3-8.2); Triglycerides 151 mg/dL (35-150)
[2020-04-15 09:53] LABS: Thyroid Stimulating Hormone 0.492 uIU/mL (0.47-4.68)
[2020-04-16 11:36] LABS: Fecal Immunochemical Test Negative (Negative)
== END ==
PROVIDERS: PCP Nurse Practitioner; Referring Provider Nurse Practitioner; Visit Provider Nurse Practitioner
DX: Z12.11 Encounter for screening for malignant neoplasm of colon (principal); E03.9 Hypothyroidism, unspecified; E78.5 Hyperlipidemia, unspecified; Z79.899 Other long term (current) drug therapy
CPT/HCPCS: 36415; 80061; 80076; 82274; 84443

== ENCOUNTER → 2020-06-03 13:36 | Outpatient (CLI) | payer OTHER, SELFPAY | PROVIDERS: PCP Nurse Practitioner; Referring Provider Nurse Practitioner; Visit Provider Nurse Practitioner | DX: M85.851 Other specified disorders of bone density and structure, right thigh (principal); Z78.0 Asymptomatic menopausal state; E07.9 Disorder of thyroid, unspecified | CPT/HCPCS: 77080 ==

== ENCOUNTER 2020-07-08 07:52 | Emergency (ER) | payer OTHER, SELFPAY ==
[2020-07-08] VITALS (7 sets, daily range): BP systolic 134–207; BP diastolic 64–92; PULSE 54–78; RESP 16–24; TEMP 36.8; O2SAT 95–99; BMI 37.1
--- NOTE | 2020-07-08 08:29 | ED.GENADULT ---
HPI - General Adult General Chief complaint: Weakness Stated complaint: general body weakness and shaking Time Seen by Provider: 07/08/20 07:57 Source: patient Mode of arrival: Ambulatory Limitations: no limitations History of Present Illness HPI narrative: Patient is a 79-year-old female. History of hypothyroid, gout and high cholesterol here for evaluation of approximately 12 hours of generalized body weakness. Patient states that her symptoms started last evening after she had dinner. States she sat down to watch TV when she had fairly sudden onset of just generalized fatigue. Denies any other associated symptoms. Did sleep well last evening. Woke up again this morning again with just an overall generalized weakness and shaking. Has not tried anything for symptoms prior to arrival. States she does have a cough but this is potentially chronic for her. Had pneumonia a couple years ago and she is concerned about that again now. She is not diabetic. states that she has had some shortness of breath on exertion but this is been over the past several months and not new over the past day. Related Data Home Medications Medication Instructions Recorded Confirmed Calcium See Rx Instructions .ROUTE .COMPLEX 05/09/18 06/29/20 [place] 3 See Rx Instructions .ROUTE .COMPLEX 05/09/18 06/29/20 Previous Rx's Medication Instructions Recorded allopurinol 100 mg tablet 100 mg PO QDAY #90 tab 12/29/19 levothyroxine 100 mcg tablet 100 mcg PO QAM #90 tab 04/15/20 rosuvastatin 20 mg tablet 20 mg PO HS #90 tab 04/15/20 Allergies Allergy/AdvReac Type Severity Reaction Status Date / Time Jcviihf-Xpb-Tfh Reductase AdvReac Severe MUSCLE Verified 06/29/20 15:32 Inhibitor ACHES & [CQBTWKL-JLI-JCH REDUCTASE LIVER INHIBITOR] PROBLEMS Sulfa (Sulfonamide AdvReac Severe RASH ALL Verified 06/29/20 15:32 Antibiotics) OVER BODY [SULFA (SULFONAMIDE ANTIBIOTICS)] trimethoprim [TRIMETHOPRIM] AdvReac Severe SEVERE Verified 06/29/20 15:32 RASH ALL OVER BODY pseudoephedrine AdvReac Intermediate RASH, Verified 06/29/20 15:32 [From SUDAFED] ITCHING AND PEELING ON HANDS AND FEET Review of Systems Constitutional Constitutional: Denies chills, Reports fatigue, Denies fever(s), Denies headache(s), Reports lethargy and Reports malaise ENT Ears, Nose, Mouth, and Throat: Denies headache(s) Cardiovascular Cardiovascular: Denies chest pain, Denies rapid heart rate and Reports dyspnea on exertion Respiratory Respiratory: Reports cough and Reports dyspnea on exertion Gastrointestinal Gastrointestinal: Denies abdominal pain, Denies nausea and Denies vomiting Genitourinary Genitourinary: Denies dysuria Genitourinary: Denies dysuria Musculoskeletal Musculoskeletal: Denies arthralgias and Denies myalgias Integumentary/Breasts Skin/Breast: Denies lesions and Denies rash Neurologic Neurologic: Denies behavioral changes and Denies headache(s) Psychiatric Psychiatric: Denies behavioral changes Endocrine Endocrine: Reports fatigue Hematologic/Lymphatic Hematologic/Lymphatic: Denies easy bleeding and Denies easy bruising Allergic/Immunologic Allergic/Immunologic: Denies urticaria Patient History Medical History Back pain (Chronic) Gout (Chronic) Hyperlipemia (Chronic) Hypothyroidism (Chronic) Osteopenia (Chronic ~2015) Polio (Resolved 1943) Spinal stenosis (Chronic) Surgical History Status post appendectomy Family History Father Heart disease Hyperlipidemia Mother Hypertension Social History Smoking Status: Never smoker alcohol intake: never substance use type: does not use Smoking Status: Never smoker Substance Use Type: does not use Exam Initial Vital Signs Initial Vital Signs: Vital Signs Temperature 98.3 F 07/08/20 08:03 Pulse Rate 78 07/08/20 08:03 Respiratory Rate 22 07/08/20 08:03 Blood Pressure 207/92 H 07/08/20 08:03 Pulse Oximetry 98 07/08/20 08:03 Const General: cooperative, comfortable, well developed and well groomed Limitations: mental status not altered [facility] Head: normal to inspection and normocephalic Resp Effort & Inspection: normal respiratory effort Auscultation: clear to auscultation bilaterally Cardio Rate: regular rate Rhythm: regular rhythm GI Inspection: non-distended Palpation: soft and No tender Skin Lesions: no lesions Rashes: no rashes Neuro General: patient alert, patient awake and patient oriented x3 Cranial Nerves: CN's II-XI intact bilaterally Cognition: normal cognition Speech: speech normal Motor: muscle tone normal throughout Sensory Exam: no sensory deficits noted Extrem General: normal to inspection and capillary refill normal Psych Appearance: grossly normal and well kempt Scores GCS [place] coma scale eye opening: Spontaneous [place] coma scale verbal response: Orientated [place] coma scale motor response: Obey commands [place] coma scale total score: 15 Course Orders Ordered: ED Orders 07/08/20 08:20 Complete Blood Count AUTO DIFF Stat Comprehensive Metabolic Panel Stat Lipase Stat NT-proBNP (BNP-Adult 18+) Stat Troponin & CK Cardiac Panel Stat 07/08/20 08:30 XR chest 1V Stat 07/08/20 08:31 EKG-12 Lead Stat 07/08/20 08:50 COVID19 -ED/INPAT/OR/L&D Stat Discontinued Medications Sodium Chloride (Normal Saline 0.9%) 1,000 mls @ 500 mls/hr IV BOLUS ONE Stop: 07/08/20 10:29 Last Admin: 07/08/20 08:48 Dose: 500 mls/hr Documented by: JUAN Vital Signs Vital signs: Vital Signs - 8 hr 07/08/20 08:03 07/08/20 08:20 07/08/20 09:00 Temperature 98.3 F Pulse Rate 78 61 63 Respiratory Rate 22 24 23 Blood Pressure 207/92 H 173/74 H Pulse Oximetry 98 95 96 07/08/20 09:01 07/08/20 09:30 07/08/20 09:31 Temperature Pulse Rate 57 L 56 L 54 L Respiratory Rate 16 Blood Pressure 146/64 H 147/65 H Pulse Oximetry 96 99 97 Medical Decision Making Lab Data Lab results reviewed: Yes I reviewed the patient's lab results. Result diagrams: 07/08/20 08:20 07/08/20 08:20 Labs: Lab Results 07/08/20 07/08/20 07/08/20 Range/Units 08:20 08:20 08:50 WBC 7.1 (4.5-11.0) X10^3/uL RBC 4.42 (4.0-5.2) X10^6/uL Hgb 13.5 (12.0-16.0) g/dL Hct 40.0 (36-46) % MCV 90.6 (80-100) fL MCH 30.6 (26-34) PG MCHC 33.8 (30-36) % RDW 14.3 (11.6-14.8) % Plt Count 231 (150-400) X10^3/uL Neut % (Auto) 58.5 (50-75) % Lymph % (Auto) 31.4 (25-40) % [place] % (Auto) 7.9 (3-14) % Eos % (Auto) 1.5 L (2-4) % Baso % (Auto) 0.7 (0-2) % Neut # (Auto) 4200 (8835-1104) /uL Lymph # (Auto) 2200 (6534-4349) /uL [place] # (Auto) 600 (0-900) /uL Eos # (Auto) 100 (0-450) /uL Baso # (Auto) 0 (0-100) /uL Sodium 140 (137-145) mmol/L Potassium 4.6 (3.4-5.1) mmol/L Chloride 108 H (98-107) mmol/L Carbon Dioxide 27 (22-32) mmol/L BUN 15 (7-17) mg/dL Creatinine 0.77 (0.52-1.04) mg/dL Estimated GFR > 60.0 (>60) mL/min BUN/Creatinine Ratio 19.5 (6-22) Glucose 104 (80-110) mg/dL Calcium 8.8 (8.4-10.2) mg/dL Total Bilirubin 0.6 (0.2-1.3) mg/dL AST 29 (14-36) IU/L ALT 18 (<35) IU/L Alkaline Phosphatase 61 (38-126) U/L Total Creatine Kinase 48 (30-135) U/L CK-MB (CK-2) TNP CK-MB (CK-2) Rel Index TNP Troponin I < 0.012 (0.01-0.034) ng/mL NT-Pro-B Natriuret Pep 153 (<450) pg/mL Total Protein 6.9 (6.3-8.2) g/dL Albumin 3.8 (3.5-5.0) g/dL Globulin 3.1 (1.7-4.1) g/dL Albumin/Globulin Ratio 1.2 (1.0-2.8) Lipase 240 (23-300) U/L COVID-19 PCR Negative (Negative) Urine Dip Bedside Urine Glucose Negative Bedside Urine Bilirubin - Negative Bedside Urine Ketone - Negative Urine Specific [place] 1.015 Bedside Urine Occult Blood - Negative Bedside Urine pH 7.0 Bedside Urine Protein - Negative Bedside Urine Urobilinogen - Negative Bedside Urine Nitrite - Negative Bedside Urine Leukocytes - Negative Esterase Point of care testing: Urine Dip Bedside Urine Glucose Negative Bedside Urine Bilirubin - Negative Bedside Urine Ketone - Negative Urine Specific [place] 1.015 Bedside Urine Occult Blood - Negative Bedside Urine pH 7.0 Bedside Urine Protein - Negative Bedside Urine Urobilinogen - Negative Bedside Urine Nitrite - Negative Bedside Urine Leukocytes - Negative Esterase Imaging Data Chest x-ray: Radiologist's Impression: [address] [address] XRay Report Signed Patient: Silvia Gamboa CMR#: [id number] : 1940Acct:[id number] Age/Sex: 79 / FDate of Service: 07/08/20 Loc: ED Accession Number: [id number] Procedure: XR chest 1V Ordering Provider: Jethro Joaquin D.O. PROCEDURE: XR CHEST 1V INDICATIONS: Cough and weakness eval for pneumonia TECHNIQUE: One view of the chest was acquired. COMPARISON: [facility], , XR CHEST 2V, 10/29/2019, 10:46. FINDINGS: Surgical changes and devices: None. Lungs and pleura: Lungs are clear. No pleural effusions or pneumothorax. Mediastinum: Tortuous thoracic aorta is seen.. Heart size is enlarged. Bones and chest wall: No suspicious bony lesions. Overlying soft tissues appear unremarkable. IMPRESSION: Cardiomegaly and tortuous thoracic aorta. No acute cardiopulmonary pathology. Dictated by: Juan Saldana M.D. on 07/08/2020 at 8:57 Approved by: Juan Saldana M.D. on 07/08/2020 at 8:58 ECG Data Attestation: I personally reviewed and interpreted this ECG as follows: Prior ECG tracings: not available for review Interpretation: Sinus rhythm Ventricular rate of 63 Sinus arrhythmia Normal QRS Normal QTC No ST T wave changes MDM Narrative Medical decision making narrative: Patient's labs unremarkable. EKG is unremarkable. Chest x-ray is unremarkable. Covered is unremarkable. Low suspicion for CVA or TIA. Low suspicion for electrolyte issues. Low suspicion for cardiac issue. No fevers. No indication for antibiotics. No indication for head CT. Nonfocal neurologic exam. Unsure the exact etiology the patient's symptoms. Upon further discussion with the patient and her just before discharge appears that the situation that brought her in today has occurred several times in the past. Is occurred a couple times over the past several months and then many years ago. She states that all the episodes have resolved on their own. We did discuss her blood pressure and how she should take her blood pressure at home. I will not make any changes to her medications. I have her follow-up with her primary provider. She is given return precautions. She expressed understanding and agreement. Discharge Plan Departure Patient Disposition: Home Clinical Impression: Weakness Instructions: How to Prevent Falls, How to Monitor Your Blood Pressure at Home Activity Restrictions/Additional Instructions: Continue all of your medications as directed. Contact your primary provider for follow-up. Return to the emergency department for any new or worsening symptoms Prescriptions: No Action Calcium See Rx Instructions .ROUTE .COMPLEX RF: 0 [place] 3 See Rx Instructions .ROUTE .COMPLEX RF: 0 allopurinol 100 mg tablet 100 mg PO QDAY Qty: 90 RF: 3 levothyroxine 100 mcg tablet 100 mcg PO QAM Qty: 90 RF: 3 rosuvastatin 20 mg tablet 20 mg PO HS Qty: 90 RF: 3 Referrals: Nora Osborne ARNP [Primary Care Provider] -
[2020-07-08 08:42] LABS: Add Manual Diff / Slide Review NO; Basophils Absolute Auto 0 /uL (0-100); Basophils Percent Auto 0.7 % (0-2); Eosinophils Absolute Auto 100 /uL (0-450); Eosinophils Percent Auto 1.5 % (2-4); Hemoglobin 13.5 g/dL (12.0-16.0); Lymphocytes Absolute Auto 2200 /uL (1100-4500); Lymphocytes Percent Auto 31.4 % (25-40); Mean Corpuscular HGB Conc 33.8 % (30-36); Mean Corpuscular Hemoglobin 30.6 PG (26-34); Mean Corpuscular Volume 90.6 fL (80-100); Monocytes Absolute Auto 600 /uL (0-900); Monocytes Percent Auto 7.9 % (3-14); Neutrophils Absolute Auto 4200 /uL (1500-7000); Neutrophils Percent Auto 58.5 % (50-75); Platelet Count 231 X10^3/uL (150-400); Red Blood Cell Count 4.42 X10^6/uL (4.0-5.2); Red Cell Distribution Width 14.3 % (11.6-14.8); White Blood Cell Count 7.1 X10^3/uL (4.5-11.0)
[2020-07-08 08:48] LABS: Alanine Aminotransferase 18 IU/L (<35); Albumin 3.8 g/dL (3.5-5.0); Albumin Globulin Ratio 1.2 (1.0-2.8); Alkaline Phosphatase 61 U/L (38-126); Aspartate Aminotransferase 29 IU/L (14-36); BUN Creatinine Ratio 19.5 (6-22); Bilirubin Total 0.6 mg/dL (0.2-1.3); Blood Urea Nitrogen 15 mg/dL (7-17); Calcium 8.8 mg/dL (8.4-10.2); Carbon Dioxide 27 mmol/L (22-32); Chloride 108 mmol/L (98-107); Creatine Kinase 48 U/L (30-135); Estimated Glomerular Filt Rate > 60.0 mL/min (>60); Globulin 3.1 g/dL (1.7-4.1); Glucose 104 mg/dL (80-110); Lipase 240 U/L (23-300); Sodium 140 mmol/L (137-145); Total Protein 6.9 g/dL (6.3-8.2)
[2020-07-08] MEDS: SODIUM CHLORIDE 0.9% 1,000 ML 500 ML IV (08:48)
[2020-07-08 08:49] LABS: HEMOLYSIS 96 (0-50)
[2020-07-08 08:50] LABS: Potassium 4.6 mmol/L (3.4-5.1)
[2020-07-08 09:00] LABS: NT-proBNP (BNP-Adult 18+) 153 pg/mL (<450); Troponin I < 0.012 ng/mL (0.01-0.034)
[2020-07-08 09:11] LABS: COVID19 -Nasal RAPID Negative (Negative)
--- NOTE | 2020-07-08 09:52 | PC.NURSE ---
pt ambualtory to bathroom
== END 2020-07-08 10:44 | disposition home or self-care (01) ==
PROVIDERS: Emergency Provider Emergency Medicine; PCP Nurse Practitioner
DX: R53.1 Weakness (principal); R05 Cough
CPT/HCPCS: 36415; 71045; 80053; 81003; 82550; 83690; 83880; 84484; 85025; 87635; 93005; 96360; 96361; 99284

== ENCOUNTER → 2021-02-19 08:43 | Outpatient (CLI) | payer OTHER, SELFPAY ==
--- NOTE | 2021-02-19 08:44 | DI.MG.S_ITS ---
BILATERAL DIGITAL SCREENING MAMMOGRAM 3D/2D WITH CAD: 02/19/2021 CLINICAL: Routine screening. Comparison is made to exams dated: 10/29/2019 mammogram, 12/17/2017 mammogram, and 12/12/2016 mammogram - [facility]. There are scattered fibroglandular elements in both breasts. Current study was also evaluated with a Computer Aided Detection (CAD) system. No significant masses, calcifications, or other findings are seen in either breast. There has been no significant interval change. IMPRESSION: NEGATIVE There is no mammographic evidence of malignancy. A 1 year screening mammogram is recommended. This exam was interpreted at Station ID: [id number]. NOTE: For mammograms, a report in lay terms will be sent to the patient. Approximately 15% of breast malignancies will not be visualized mammographically. In the management of a palpable breast mass, a negative mammogram must not discourage biopsy of a clinically suspicious lesion. Electronically Signed By: Fili Rendon M.D. at/tori:02/21/2021 07:30:27 letter sent: Normal Exam ACR BI-RADS Category 1: Negative [id number]
== END ==
PROVIDERS: PCP Nurse Practitioner; Referring Provider Nurse Practitioner; Visit Provider Nurse Practitioner
DX: Z12.31 Encounter for screening mammogram for malignant neoplasm of breast (principal)
CPT/HCPCS: 77063; 77067

== ENCOUNTER → 2021-05-30 14:31 | Outpatient (CLI) | payer OTHER, SELFPAY | PROVIDERS: PCP Nurse Practitioner; Visit Provider Physician Assistant | DX: N89.8 Other specified noninflammatory disorders of vagina (principal); N39.0 Urinary tract infection, site not specified | CPT/HCPCS: 87077; 87086; 87210 ==

== ENCOUNTER → 2021-06-14 08:56 | Outpatient (CLI) | payer OTHER, SELFPAY ==
[2021-06-14 10:50] LABS: Potassium 4.7 mmol/L (3.4-5.1)
[2021-06-14 10:51] LABS: Alanine Aminotransferase 20 IU/L (<35); Albumin 3.8 g/dL (3.5-5.0); Albumin Globulin Ratio 1.4 (1.0-2.8); Alkaline Phosphatase 56 U/L (38-126); Aspartate Aminotransferase 27 IU/L (14-36); BUN Creatinine Ratio 16.7 (6-22); Bilirubin Total 0.5 mg/dL (0.2-1.3); Blood Urea Nitrogen 14 mg/dL (7-17); Calcium 9.1 mg/dL (8.4-10.2); Carbon Dioxide 29 mmol/L (22-32); Chloride 107 mmol/L (98-107); Cholesterol 134 mg/dL (140-199); Estimated Glomerular Filt Rate > 60.0 mL/min (>60); Globulin 2.7 g/dL (1.7-4.1); Glucose 103 mg/dL (80-110); HDL Cholesterol 46 mg/dL (40-60); HEMOLYSIS 48 (0-50); LDL Cholesterol Calculated 67 mg/dL (<100); Sodium 141 mmol/L (137-145); Total Protein 6.5 g/dL (6.3-8.2); Triglycerides 107 mg/dL (35-150)
[2021-06-14 11:15] LABS: Thyroid Stimulating Hormone 0.321 uIU/mL (0.47-4.68)
== END ==
PROVIDERS: PCP Nurse Practitioner; Referring Provider Nurse Practitioner; Visit Provider Nurse Practitioner
DX: E03.9 Hypothyroidism, unspecified (principal); E78.5 Hyperlipidemia, unspecified; Z79.899 Other long term (current) drug therapy
CPT/HCPCS: 36415; 80053; 80061; 84443

== ENCOUNTER → 2021-06-21 11:53 | Outpatient (CLI) | payer OTHER, SELFPAY ==
[2021-06-21 13:17] LABS: Appearance Urine UA CLOUDY; Bilirubin Urine UA 2+ (NEGATIVE); Color Urine UA YELLOW; Glucose Urine UA NEGATIVE (Negative); Ketones Urine UA 1+ (NEGATIVE); Leukocyte Esterase Urine UA 2+ (NEGATIVE); Nitrite Urine UA NEGATIVE (Negative); Occult Blood Urine UA 2+ (Negative); Protein Urine UA 3+ (Negative); Specific Gravity Urine UA >=1.030 (1.000-1.035); Urobilinogen Urine UA 0.2 E.U./dL (0.2)
[2021-06-21 13:25] LABS: Ictotest Urine Negative (Negative); pH Urine UA 5.5 (4.5-8.0)
[2021-06-21 13:33] LABS: Amorphous Sediment Urine 1+; Bacteria Urine Few (2-10); RBC Urine 1-5/HPF (0-5/HPF); Squamous Epithelial Cell Urine 1-5 /HPF (0-5/HPF); WBC Urine 30-100/HPF (0-5/HPF)
[2021-06-21 13:34] LABS: Culture Indicated Urine Specimen Cultured; Mucus Urine 2+ (Negative)
== END ==
PROVIDERS: PCP Nurse Practitioner; Referring Provider Student in an Organized Health Care Education/Training Program; Visit Provider Student in an Organized Health Care Education/Training Program
DX: N39.0 Urinary tract infection, site not specified (principal)
CPT/HCPCS: 81001; 87086

== ENCOUNTER → 2021-06-24 13:24 | Outpatient (CLI) | payer OTHER, SELFPAY ==
--- NOTE | 2021-06-24 13:27 | DI.CT.S_ITS ---
PROCEDURE: CT ABDOMEN PELVIS WO CON INDICATIONS: UTI, ABD PAIN TECHNIQUE: Noncontrast 5 mm thick sections acquired from the diaphragms to the symphysis. 5 mm coronal and sagittal reformats were then performed. For radiation dose reduction, the following was used: automated exposure control, adjustment of mA and/or kV according to patient size. COMPARISON: None. FINDINGS: Image quality: Excellent. Lung bases: Lung bases are clear. Heart size is normal. Solid organs: Liver: The liver has no mass or intrahepatic biliary ductal dilatation. The portal vein and hepatic veins are patent. Biliary: The gallbladder has no gallstones, pericholecystic fluid, gallbladder wall thickening, or surrounding inflammatory change. Pancreas: The pancreas has no mass or ductal dilatation. There is no surrounding inflammation. Spleen: Normal size. There are no masses. Adrenals: No hypertrophy or nodules. Kidneys: The right kidney has a 2.1 x 1.9 cm cyst. Multiple subcentimeter peripelvic cysts of the left kidney. No solid masses. No nephroureteral calculi. Peritoneum and bowel: The distal esophagus and stomach are normal. The small bowel has a normal caliber and appearance. The terminal ileum is normal. The large bowel has a normal caliber and appearance. The appendix is not definitively visualized; however there are no secondary findings to suggest acute appendicitis. No free fluid or air. Nodes and vessels: No retroperitoneal or mesenteric adenopathy by size criteria. Aorta and inferior vena cava are normal in size. Miscellaneous: No abdominal wall mass or hernia. PELVIS: Genitourinary: The bladder has no wall thickening or mass. No bladder calcifications. Miscellaneous: No inguinal hernias or adenopathy. Bones: No suspicious bony lesions. No vertebral body compression fractures. IMPRESSION: 1. No acute abdominal or pelvic abnormality. 2. Simple bilateral renal cysts. 3. Diverticulosis without evidence of diverticulitis. 4. Multilevel degenerative disc disease of the lumbar spine most prominent at L4-5 and L5-S1. Dictated by: Werner Villarreal M.D. on 06/24/2021 at 13:36 Approved by: Werner Villarreal M.D. on 06/24/2021 at 13:42
== END ==
PROVIDERS: PCP Nurse Practitioner; Referring Provider Nurse Practitioner; Visit Provider Student in an Organized Health Care Education/Training Program
DX: N39.0 Urinary tract infection, site not specified (principal); R10.9 Unspecified abdominal pain; Q61.02 Congenital multiple renal cysts; K57.90 Diverticulosis of intestine, part unspecified, without perforation or abscess without bleeding; M51.36 Other intervertebral disc degeneration, lumbar region
CPT/HCPCS: 74176

== ENCOUNTER → 2021-06-28 15:48 | Outpatient (CLI) | payer OTHER, SELFPAY | PROVIDERS: PCP Nurse Practitioner; Visit Provider Registered Nurse Diabetes Educator | DX: N89.8 Other specified noninflammatory disorders of vagina (principal) | CPT/HCPCS: 87210; 87220 ==

== ENCOUNTER → 2021-07-05 12:27 | Outpatient (CLI) | payer OTHER, SELFPAY ==
--- NOTE | 2021-07-05 12:27 | DI.US.S_ITS ---
PROCEDURE: US PELVIC COMPLETE INDICATIONS: VAGINAL MASS TECHNIQUE: Real-time scanning was performed of the pelvic organs, with image documentation. Additional endovaginal scanning was necessary due to incomplete visualization of the adnexal and endometrial structures by transabdominal scanning. COMPARISON: [facility], CT, CT ABDOMEN PELVIS WO CON, 06/24/2021, 13:29. FINDINGS: Uterus: Uterus is normal in size at 5.5 x 3.5 x 2.9 cm. The endometrium measures 8.6 mm in combined thickness. Nabothian cyst is noted. No definitive vaginal mass is identified. However, view is markedly limited. Ovaries: Ovaries are not visualized. Adnexal regions are unremarkable. Other: No pathologic free abdominal or pelvic fluid. IMPRESSION: 1. No definitively identified vaginal mass. However, visualization is limited. If concern persists, MRI is recommended for further evaluation Dictated by: Alexia Avilez M.D. on 07/05/2021 at 17:28 Approved by: Alexia Avilez M.D. on 07/05/2021 at 17:29
== END ==
PROVIDERS: PCP Nurse Practitioner; Referring Provider Nurse Practitioner; Visit Provider Nurse Practitioner
DX: N89.8 Other specified noninflammatory disorders of vagina (principal); N88.8 Other specified noninflammatory disorders of cervix uteri
CPT/HCPCS: 76830; 76856

== ENCOUNTER 2021-07-07 16:35 | Emergency (ER) | payer OTHER, SELFPAY ==
[2021-07-07 16:42] VITALS: BP 147/95; PULSE 85; RESP 16; TEMP 36.9; O2SAT 98; BMI 35.2
[2021-07-07 20:03] VITALS: BP 145/85; PULSE 74; RESP 22; O2SAT 98
[2021-07-07 20:04] LABS: Appearance Urine UA CLEAR; Bilirubin Urine UA NEGATIVE (NEGATIVE); Color Urine UA YELLOW; Glucose Urine UA NEGATIVE (Negative); Ketones Urine UA NEGATIVE (NEGATIVE); Leukocyte Esterase Urine UA 2+ (NEGATIVE); Nitrite Urine UA NEGATIVE (Negative); Occult Blood Urine UA TRACE-INTACT (Negative); Protein Urine UA 1+ (Negative); Urobilinogen Urine UA 0.2 E.U./dL (0.2)
[2021-07-07 20:10] LABS: Bacteria Urine None Seen; Culture Indicated Urine Cult Not Indicated; RBC Urine 0-1/HPF (0-5/HPF); Renal Epithelial Cells Urine 5-10/HPF (0-1/HPF); Squamous Epithelial Cell Urine 5-10 /HPF (0-5/HPF); WBC Urine 5-10/HPF (0-5/HPF)
[2021-07-07 21:06] LABS: Appearance Urine UA CLEAR; Bilirubin Urine UA NEGATIVE (NEGATIVE); Color Urine UA YELLOW; Glucose Urine UA NEGATIVE (Negative); Ketones Urine UA TRACE (NEGATIVE); Leukocyte Esterase Urine UA TRACE (NEGATIVE); Nitrite Urine UA NEGATIVE (Negative); Occult Blood Urine UA TRACE-LYSED (Negative); Protein Urine UA TRACE (Negative); Specific Gravity Urine UA 1.025 (1.000-1.035); Urobilinogen Urine UA 0.2 E.U./dL (0.2)
[2021-07-07 21:29] LABS: Bacteria Urine Occasional (0-1); Culture Indicated Urine Specimen Cultured; Hyaline Casts Urine 0-1/LPF; Mucus Urine 1+ (Negative); RBC Urine None Seen (0-5/HPF); WBC Urine 1-5/HPF (0-5/HPF)
--- NOTE | 2021-07-07 22:07 | ED_ITS ---
HPI - Female Genitourinary General Chief complaint: Urogenital-Female Stated complaint: POSSIBLE UTI Time Seen by Provider: 07/07/21 20:19 Source: patient Mode of arrival: Ambulatory History of Present Illness HPI Narrative: 80-year-old female nonsmoker with hypothyroid and recent urinary tract infections presents with a chief complaint of a return of urinary frequency and urgency. She has been on multiple courses of antibiotics over the past few weeks including clarithromycin, ciprofloxacin and seemed to do quite well on Cipro. About a month ago she had been on Cipro for 5 days and felt that her symptoms had largely improved over the duration and returned a few days after completion of the antibiotics. She had most recently been on clarithromycin states that she did not have any improvement whatsoever. She denies systemic findings such as fever chills nor nausea or vomiting. She denies any vaginal bleeding or discharge Related Data Home Medications Medication Instructions Recorded Confirmed Calcium See Rx Instructions .ROUTE .COMPLEX 05/09/18 06/21/21 [place] 3 See Rx Instructions .ROUTE .COMPLEX 05/09/18 06/21/21 Previous Rx's Medication Instructions Recorded allopurinol 100 mg tablet 100 mg PO QDAY #90 tab 06/09/21 rosuvastatin 20 mg tablet 20 mg PO HS #90 tab 06/09/21 levothyroxine 88 mcg tablet 88 mcg PO DAILY #90 tab 06/15/21 ciprofloxacin HCl 500 mg tablet 500 mg PO BID #14 tab 07/07/21 Allergies Allergy/AdvReac Type Severity Reaction Status Date / Time Meacipr-Mbk-Wqr Reductase AdvReac Severe MUSCLE Verified 07/07/21 16:57 Inhibitor ACHES & [[id number] REDUCTASE LIVER INHIBITOR] PROBLEMS Sulfa (Sulfonamide AdvReac Severe RASH ALL Verified 07/07/21 16:57 Antibiotics) OVER BODY [SULFA (SULFONAMIDE ANTIBIOTICS)] trimethoprim [TRIMETHOPRIM] AdvReac Severe SEVERE Verified 07/07/21 16:57 RASH ALL OVER BODY pseudoephedrine AdvReac Intermediate RASH, Verified 07/07/21 16:57 [From SUDAFED] ITCHING AND PEELING ON HANDS AND FEET Review of Systems Review of Systems Narrative: GENERAL: Denies chills, fatigue, malaise, fever, sweats. HEENT: Denies sinus pain, ear pain, sore throat, difficulty swallowing, dizziness. RESPIRATORY: Denies dyspnea, cough, wheezing, hemoptysis, sputum. CARDIOVASCULAR: Denies chest pain, palpitations, orthopnea, edema, GASTROINTESTINAL: Denies nausea, vomiting, abdominal pain, diarrhea, constipation, melena. : See HPI MUSCULOSKELETAL: denies weakness, joint pain, or bony pain SKIN: Denies rash, skin lesions, or other NEUROLOGIC: Denies weakness, headache, numbness, change in speech, confusion, seizures, incoordination. PSYCHIATRIC: No concerning psychosocial issues. 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 Extraoccular muscles are intact bilaterally. There is no subconjunctival hemorrhage or exudate. CHEST: Lungs are clear to auscultation bilaterally and free of wheezes, rales, or rhonchi. Heart rate is regular rhythm, there are no murmurs, clicks, rubs, or gallops. There is no chest wall tenderness. ABD: Abdomen is soft and nontender. There is no guarding or rebound. Bowel sounds are normal in all 4 quadrants. There is no mass or organomegaly. EXT: Full painless ROM of all extremities with no loss of sensation or strength. SKIN: Warm, pink, and dry. No erythema or rash Initial Vital Signs Initial Vital Signs: Vital Signs Temperature 98.4 F 07/07/21 16:42 Pulse Rate 85 07/07/21 16:42 Respiratory Rate 16 07/07/21 16:42 Blood Pressure 147/95 H 07/07/21 16:42 Pulse Oximetry 98 07/07/21 16:42 Course Orders Ordered: ED Orders 07/07/21 20:01 Urinalysis and Microscopic Stat 07/07/21 20:55 Urinalysis and Microscopic Stat Urine Culture Stat Vital Signs Vital signs: Vital Signs - 8 hr 07/07/21 16:42 07/07/21 20:03 Temperature 98.4 F Pulse Rate 85 74 Respiratory Rate 16 22 Blood Pressure 147/95 H 145/85 H Pulse Oximetry 98 98 MDM - Female Genitourinary Lab Data Labs: Lab Results 07/07/21 07/07/21 Range/Units 20:01 20:55 Urine Color Yellow Yellow Urine Appearance Clear Clear Urine pH 6.0 5.0 (4.5-8.0) Ur Specific [place] 1.020 1.025 (1.000-1.035) Urine Protein 1+ H Trace H (Negative) Urine Glucose (UA) Negative Negative (Negative) g/dL Urine Ketones Negative Trace H (NEGATIVE) Urine Occult Blood Trace-intact Trace-lysed (Negative) Urine Nitrate Negative Negative (Negative) Urine Bilirubin Negative Negative (NEGATIVE) Urine Urobilinogen 0.2 0.2 (0.2) E.U./dL Ur Leukocyte Esterase 2+ H Trace H (NEGATIVE) Urine RBC 0-1/hpf None seen (0-5/HPF) Urine WBC 5-10/hpf H 1-5/hpf (0-5/HPF) Ur Squamous Epith Cells 5-10 /hpf H (0-5/HPF) Ur Renal Epithelial Cell 5-10/hpf H (0-1/HPF) Urine Bacteria None seen Occasional (0-1) (None) Hyaline Casts 0-1/lpf (None) Urine Mucus 1+ H (Negative) Ur Culture Indicated? Cult not indicated Specimen cultured MDM Narrative Medical decision making narrative: Patient with a recurrence of urinary symptoms in the absence of any systemic findings. She is very well-appearing and has had frequent urine infections which have been most helped by a round of Cipro Discharge Plan Departure Patient Disposition: Home Clinical Impression: Dysuria, Acute UTI Instructions: DI for Urinary Tract Infection (UTI), DI for Dysuria -- Adult Activity Restrictions/Additional Instructions: *You have been diagnosed with [dysuria, most likely urinary tract infection. Your physical exam is history are reassuring. I have reviewed your imaging was is also very reassuring *What to do: *Please continue to take your regular medications as directed. [ x] New medication prescriptions sent to your pharmacy: [[facility]] [ ] New medication written as a paper prescription [ ] No new medications given *Please follow up with your primary care provider in 2-3 days, call for an appointment. Let them know you were seen in the Emergency Department and that we ask that you be seen in follow up. We will electronically transmit a record of today's note if your PCP is in our system *If you do not have a primary care provider please contact the [facility] Resource line at [phone]. They will ask some questions about your medical history and help get you set up with a doctor in the community. *Return to Emergency Department if you should have any new, worsening or concerning symptoms, such as [fever greater than 101 F, shaking chills, worsening pain, persistent vomiting or other bothersome symptoms] Prescriptions: New ciprofloxacin HCl 500 mg tablet 500 mg PO BID Qty: 14 RF: 0 No Action Calcium See Rx Instructions .ROUTE .COMPLEX RF: 0 [place] 3 See Rx Instructions .ROUTE .COMPLEX RF: 0 levothyroxine 88 mcg tablet 88 mcg PO DAILY Qty: 90 RF: 1 allopurinol 100 mg tablet 100 mg PO QDAY Qty: 90 RF: 3 rosuvastatin 20 mg tablet 20 mg PO HS Qty: 90 RF: 3 Referrals: Nora Osborne ARNP [Primary Care Provider] -
[2021-07-07 22:25] VITALS: BP 124/81; PULSE 61; RESP 18; O2SAT 95
== END 2021-07-07 22:35 | disposition home or self-care (01) ==
PROVIDERS: Emergency Medicine; Emergency Provider Emergency Medicine; PCP Nurse Practitioner
DX: N39.0 Urinary tract infection, site not specified (principal); R30.0 Dysuria
CPT/HCPCS: 81001; 87086; 99282

== ENCOUNTER → 2021-07-09 10:50 | Outpatient (CLI) | payer OTHER, SELFPAY ==
--- NOTE | 2021-07-09 10:54 | DI.RAD.S_ITS ---
PROCEDURE: XR CHEST 2V INDICATIONS: Short of breath, fatigue TECHNIQUE: 2 views of the chest were acquired. COMPARISON: [facility], CT, CT ABDOMEN PELVIS WO CON, 06/24/2021, 13:29. [facility], CR, XR CHEST 1V, 10/04/2019, 5:21. [facility], CR, XR CHEST 2V, 10/29/2019, 10:46. [facility], CR, XR CHEST 1V, 07/08/2020, 8:34. FINDINGS: Surgical changes and devices: None. Lungs and pleura: Lungs are clear. No pleural effusions or pneumothorax. Mediastinum: The cardiac contours are within normal limits. The aorta demonstrates calcification and tortuosity. Bones and chest wall: Age-appropriate bony degenerative changes are seen. Accentuated thoracic kyphosis is seen. No suspicious bony abnormalities. Soft tissues appear unremarkable. IMPRESSION: No acute abnormality can be seen by plain film. Dictated by: Dionte Al M.D. on 07/09/2021 at 11:02 Approved by: Dionte Al M.D. on 07/09/2021 at 11:03
[2021-07-09 11:45] LABS: Add Manual Diff / Slide Review NO; Basophils Absolute Auto 0 /uL (0-100); Basophils Percent Auto 0.6 % (0-2); Eosinophils Absolute Auto 100 /uL (0-450); Eosinophils Percent Auto 1.3 % (2-4); Hematocrit 44.2 % (36-46); Hemoglobin 14.6 g/dL (12.0-16.0); Lymphocytes Absolute Auto 1800 /uL (1100-4500); Lymphocytes Percent Auto 23.2 % (25-40); Mean Corpuscular HGB Conc 33.1 % (30-36); Mean Corpuscular Hemoglobin 30.5 PG (26-34); Mean Corpuscular Volume 92.2 fL (80-100); Monocytes Absolute Auto 400 /uL (0-900); Monocytes Percent Auto 5.9 % (3-14); Neutrophils Absolute Auto 5300 /uL (1500-7000); Platelet Count 255 X10^3/uL (150-400); Red Cell Distribution Width 14.8 % (11.6-14.8); White Blood Cell Count 7.6 X10^3/uL (4.5-11.0)
== END ==
PROVIDERS: PCP Nurse Practitioner; Referring Provider Nurse Practitioner; Visit Provider Nurse Practitioner
DX: R06.02 Shortness of breath (principal); R53.83 Other fatigue
CPT/HCPCS: 36415; 71046; 85025; 93005

== ENCOUNTER → 2021-07-21 14:44 | Outpatient (CLI) | payer OTHER, SELFPAY ==
[2021-07-21 15:27] LABS: Appearance Urine UA CLEAR; Bilirubin Urine UA NEGATIVE (NEGATIVE); Color Urine UA YELLOW; Glucose Urine UA NEGATIVE (Negative); Ketones Urine UA NEGATIVE (NEGATIVE); Leukocyte Esterase Urine UA TRACE (NEGATIVE); Nitrite Urine UA NEGATIVE (Negative); Occult Blood Urine UA TRACE-INTACT (Negative); Protein Urine UA NEGATIVE (Negative); Urobilinogen Urine UA 0.2 E.U./dL (0.2)
[2021-07-21 15:52] LABS: RBC Urine 5-10/HPF (0-5/HPF); WBC Urine 1-5/HPF (0-5/HPF)
[2021-07-21 15:53] LABS: Bacteria Urine None Seen; Culture Indicated Urine Cult Not Indicated; Renal Epithelial Cells Urine 10-20/HPF (0-1/HPF); Squamous Epithelial Cell Urine 5-10 /HPF (0-5/HPF)
== END ==
PROVIDERS: PCP Nurse Practitioner; Referring Provider Registered Nurse Diabetes Educator; Visit Provider Registered Nurse Diabetes Educator
DX: N30.01 Acute cystitis with hematuria (principal)
CPT/HCPCS: 81001

== ENCOUNTER → 2021-08-03 08:26 | Outpatient (CLI) | payer OTHER, SELFPAY ==
--- NOTE | 2021-08-03 08:27 | DI.NM.S_ITS ---
PROCEDURE: NM SUSI PERF SPECT R&S PHARM Rest and pharmacological stress myocardial perfusion SPECT with gated imaging and ejection fraction RADIOPHARMACEUTICAL: 24.8 mCi Tc-99m tetrafosmin IV at rest and 25.5 mCi Tc-99m tetrafosmin IV at peak effect of pharmacological stress. [id number]-[id number] was performed. INDICATIONS: Persistent SOB TECHNIQUE: Radiopharmaceutical was injected at peak stress test, and also at rest. SPECT images were obtained. SPECT myocardial perfusion images were displayed in short axis, horizontal long axis, and vertical long axis views. Gated images were reviewed using [employer] software. COMPARISON: None. CARDIAC STRESS: Pharmacologic stress test was performed under the supervision of an attending staff, using an infusion of regadenoson. Hemodynamic data: There is normal blood pressure and heart rate response to pharmacologic stress. Symptoms: The patient denied anginal chest pain. EKG: No diagnostic changes of ischemia; no ectopy. FINDINGS: Raw data: There is good myocardial uptake of radiotracer. No significant motion artifacts. Flxw-ai-yjsol ratio is 0.33 (normal is less than 0.38 for tetrafosmin tracer). Left ventricle function: Gated images demonstrate normal left ventricular wall thickening. No segmental wall motion abnormalities. No transient ischemic dilation; TID is 0.98 (normal less than 1.3). Left ventricle resting end diastolic volume is 82 mL. Left ventricle stress ejection fraction is >75%; normal range is above 45%. Myocardial perfusion: There is a very small, very mild intensity apical anterolateral defect that is noted in the resting images however not seen in the stress images and most consistent with shifting breast attenuation. IMPRESSION: 1. No definite pharmacologic induced ischemia. 2. Hyperdynamic LV function. Dictated by: Estephania Cantor D.O. on 08/05/2021 at 15:49 Approved by: Estephania Cantor M.D. on 08/05/2021 at 15:54
--- NOTE | 2021-08-04 14:25 | PM.TREADMILL ---
Cardiac Stress Test Report Referral & Results Date Patient Seen: 08/04/21 Time Patient Seen: 14:25 Requesting provider: Nora Osborne Indication: Persistent shortness of breath Rest ECG: Unremarkable Procedure Note: After both written and verbal informed consent the patient had an IV started by the diagnostic imaging RN and then was hooked up to the treadmill monitoring system. The patient was placed on the treadmill at 1 mile an hour with no elevation and was then injected with the Amanda scan material. The Cardiolite was then immediately administered. The patient spent an additional 2-3 minutes on the treadmill before being returned to the [facility] in the supine position. The patient had a normal response to all infused materials. Impression: Please see perfusion imaging report for details regarding possible ischemia Please note: Actual ECG tracings can be found in the PACS system.
== END ==
PROVIDERS: PCP Nurse Practitioner; Referring Provider Nurse Practitioner; Visit Provider Nurse Practitioner
DX: R06.02 Shortness of breath (principal); I70.0 Atherosclerosis of aorta; Z20.822 Contact with and (suspected) exposure to COVID-19
CPT/HCPCS: 78452; 87635; 93016; 93017; 93018; C9803; A9502; J2785

== ENCOUNTER → 2021-08-03 10:14 | Outpatient (CLI) | payer OTHER, SELFPAY ==
[2021-08-03 12:21] LABS: COVID19 -Nasal RAPID Negative (Negative)
== END ==
PROVIDERS: PCP Nurse Practitioner; Visit Provider Nurse Practitioner Family
DX: Z20.822 Contact with and (suspected) exposure to COVID-19 (principal)
CPT/HCPCS: 87635

== ENCOUNTER → 2021-08-05 14:43 | Outpatient (CLI) | payer OTHER, SELFPAY ==
--- NOTE | 2021-08-05 14:43 | DI.ECHO.S_ITS ---
[place] [facility]---------+ [facility] +---------+ : : [address] : : : : [id number] : : : : Phone: [phone]+ Echocardiogram Report + + :Name: ANGELIA ORTIZ Study Date: 08/05/2021 Height: 66 in : :[facility] ReadingLocation: Weight: 218 lb : : Gender: Female BSA: 2.1 m2 : :: 1940 Age: 80 yrs BP: 112/70 mmHg: :Reason For Study: SOB : : Performed By: Duane Rosa : :Referring: ROMARIO ALVAREZ : + + Interpretation Summary Normal sinus rhythm with occasional PAC's. Normal LV size and wall thickness. Mildly reduced LV systolic function estimated at 45-50%. Mild RV enlargement; mild LA enlargement. No significant valvular abnormalities. No prior study available for comparison. Procedure: A two-dimensional transthoracic echocardiogram with color flow and Doppler was performed. The study quality was technically adequate. There is no prior echocardiogram noted for this patient. The patient was in normal sinus rhythm during the exam. Left Ventricle: The left ventricle is normal in size. There is normal left ventricular wall thickness. The ejection fraction is estimated to be 45-50%. There are no focal wall motion abnormalities. Diastolic parameters suggest a relaxation abnormality of the left ventricle, consistent with probable normal filling pressures. Right Ventricle: The right ventricle is mildly dilated. Right ventricular systolic function is at the lower limits of normal. Atria: The left atrium is mildly dilated. There is no Doppler evidence for an atrial septal defect. Mitral Valve: The mitral valve is normal in structure and function. There is trace mitral regurgitation. Aortic Valve: The aortic valve is trileaflet. The aortic valve opens well. No aortic regurgitation is present. Tricuspid Valve: The tricuspid valve is normal in structure and function. There is trace tricuspid regurgitation. The right ventricular systolic pressure is estimated to be at least 26 mmHg based on an estimated right atrial pressure of 3 mm Hg. Pulmonic Valve: The pulmonic valve is normal in structure and function. There is trace pulmonic regurgitation. Great Vessels: The aortic root is normal size. The dimensions of the ascending aorta are normal. The pulmonary artery is normal size. The IVC is of normal diameter and collapses greater than 50% with a sniff. This suggests a low right atrial pressure of 3 mm Hg. Pericardium/ Pleura There is no pericardial effusion. There is no pleural effusion. MMode/2D Measurements & Calculations LVIDd: 3.1 cm LVOT diam: 2.2 cm LVIDs: 3.1 cm Ao root diam: 3.5 cm FS: -1.6 % asc Aorta Diam: 3.4 cm IVSd: 0.97 cm Ao Arch Diam (Prox Trans): 3.2 cm LVPWd: 0.89 cm LV millan. diameter/BSA (cm/m^2): 1.5 LV sys. diameter/BSA (cm/m^2): 1.5 LA dimension: 3.6 cm RA long axis: 5.5 cm LA A2 area: 20.5 cm2 RA area: 14.7 cm2 LA A4 area: 26.6 cm2 RA vol: 33.5 ml LA length (vol): 6.7 cm RA : 16.1 ml/m2 LA vol: 69.1 ml IVC diam: 1.1 cm LA vol index: 33.3 ml/m2 TAPSE: 1.6 cm Doppler Measurements & Calculations Ao V2 max: 158.7 cm/sec LVOT Max Sean: 103.3 cm/sec Ao V2 mean: 121.4 cm/sec LV V1 max P.3 mmHg Ao max P.2 mmHg LV V1 VTI: 19.4 cm Ao mean P.4 mmHg DAVID(I,D): 2.3 cm2 Ao V2 VTI: 32.7 cm DAVID(V,D): 2.5 cm2 sev ratio: 0.59 DAVID indexed to BSA (cm^2/m^2): 1.1 MV E max sean: 41.2 cm/sec TR max sean: 241.5 cm/sec MV A max sean: 79.8 cm/sec TR max P.3 mmHg MV E/A: 0.52 PA V2 max: 74.1 cm/sec Med Peak E' Sean: 4.0 cm/sec PA V2 mean: 53.5 cm/sec E/E' med: 10.2 PA mean P.3 mmHg Lat Peak E' Sean: 3.0 cm/sec PA pr(Accel): 20.8 mmHg E/E' lat: 13.6 E/e' average: 11.9 MV dec time: 0.19 sec SV(LVOT): 75.4 ml Electronically signed by: Taylor Lowry M.D. on Reading Physician:08/06/2021 12:45 AM
== END ==
PROVIDERS: PCP Nurse Practitioner; Referring Provider Nurse Practitioner; Visit Provider Nurse Practitioner
DX: R06.02 Shortness of breath (principal); I70.0 Atherosclerosis of aorta
CPT/HCPCS: 93306

== ENCOUNTER → 2021-08-23 12:25 | Outpatient (CLI) | payer OTHER, SELFPAY ==
[2021-08-23 13:37] LABS: Appearance Urine UA CLEAR; Bilirubin Urine UA 1+ (NEGATIVE); Color Urine UA YELLOW; Glucose Urine UA NEGATIVE (Negative); Ketones Urine UA TRACE (NEGATIVE); Leukocyte Esterase Urine UA 1+ (NEGATIVE); Nitrite Urine UA NEGATIVE (Negative); Occult Blood Urine UA NEGATIVE (Negative); Protein Urine UA 2+ (Negative); Specific Gravity Urine UA >=1.030 (1.000-1.035); Urobilinogen Urine UA 0.2 E.U./dL (0.2)
[2021-08-23 13:38] LABS: NT-proBNP (BNP-Adult 18+) 200 pg/mL (<450)
[2021-08-23 14:02] LABS: Bacteria Urine Moderate (10-30); Calcium Oxalate Crystals Urine Many; Culture Indicated Urine Specimen Cultured; Ictotest Urine Negative (Negative); RBC Urine 0-1/HPF (0-5/HPF); Renal Epithelial Cells Urine 1-5/HPF (0-1/HPF); Squamous Epithelial Cell Urine 1-5 /HPF (0-5/HPF); Transitional Epi Cells Urine 5-10/HPF (0-5/HPF); WBC Urine 10-30/HPF (0-5/HPF)
== END ==
PROVIDERS: PCP Nurse Practitioner; Referring Provider Internal Medicine Cardiovascular Disease; Visit Provider Internal Medicine Cardiovascular Disease
DX: R06.02 Shortness of breath (principal); R42 Dizziness and giddiness; Z87.440 Personal history of urinary (tract) infections
CPT/HCPCS: 36415; 81003; 81015; 83880; 87086

== ENCOUNTER → 2021-09-27 11:24 | Outpatient (CLI) | payer OTHER, SELFPAY ==
[2021-09-27 13:16] LABS: Thyroid Stimulating Hormone 1.19 uIU/mL (0.47-4.68)
== END ==
PROVIDERS: PCP Nurse Practitioner; Referring Provider Nurse Practitioner; Visit Provider Nurse Practitioner
DX: E03.9 Hypothyroidism, unspecified (principal)
CPT/HCPCS: 36415; 84443

== ENCOUNTER → 2021-10-20 13:46 | Outpatient (CLI) | payer OTHER, SELFPAY ==
[2021-10-20 14:31] LABS: COVID19 -Nasal RAPID Negative (Negative)
== END ==
PROVIDERS: PCP Nurse Practitioner; Referring Provider Internal Medicine; Visit Provider Internal Medicine
DX: Z20.822 Contact with and (suspected) exposure to COVID-19 (principal)
CPT/HCPCS: 87635; C9803

== ENCOUNTER → 2021-10-21 08:46 | Outpatient (CLI) | payer OTHER, SELFPAY ==
--- NOTE | 2021-10-26 09:59 | PM.PFT.1 ---
Pulmonary Function Test Referral & Results Date Patient Seen: 10/21/21 Requesting provider: Konstantin Martel Results: The spirometry demonstrates an FVC of 2.69 L which is 95% of predicted. The FEV1 was measured at 2.05 L which is 98% of predicted. The FEV1/FVC ratio was 76 which is 102% of predicted. Following the administration of bronchodilator there was a 44% improvement in FEF 25-75% Lung volumes show an SVC of 2.78 L which is 97% of predicted. The diffusing capacity was measured at 22.45 which is 83% of predicted. The maximum voluntary ventilation was normal Interpretation: This study is essentially normal There may be a minimal reduction in diffusing capacity Clinical correlation suggested
== END ==
PROVIDERS: PCP Nurse Practitioner; Referring Provider Internal Medicine Cardiovascular Disease; Visit Provider Internal Medicine Cardiovascular Disease
DX: R06.02 Shortness of breath (principal)
CPT/HCPCS: 94060; 94726; 94729

== ENCOUNTER → 2022-01-13 08:20 | Outpatient (CLI) | payer OTHER, SELFPAY ==
[2022-01-13 10:23] LABS: Thyroid Stimulating Hormone 4.61 uIU/mL (0.47-4.68)
== END ==
PROVIDERS: PCP Nurse Practitioner; Referring Provider Nurse Practitioner; Visit Provider Nurse Practitioner
DX: E03.9 Hypothyroidism, unspecified (principal)
CPT/HCPCS: 36415; 84443

== ENCOUNTER → 2022-03-01 10:54 | Outpatient (CLI) | payer OTHER, SELFPAY ==
--- NOTE | 2022-03-01 | DI.MG.S_ITS ---
BILATERAL DIGITAL SCREENING MAMMOGRAM 3D/2D WITH CAD: 03/01/2022 CLINICAL: Routine screening. Comparison is made to exams dated: 02/19/2021 mammogram, 10/29/2019 mammogram, and 12/17/2017 mammogram - [facility]. There are scattered fibroglandular elements in both breasts. Current study was also evaluated with a Computer Aided Detection (CAD) system. No significant masses, calcifications, or other findings are seen in either breast. There has been no significant interval change. IMPRESSION: NEGATIVE There is no mammographic evidence of malignancy. A 1 year screening mammogram is recommended. This exam was interpreted at Station ID: [id number]. NOTE: For mammograms, a report in lay terms will be sent to the patient. Approximately 15% of breast malignancies will not be visualized mammographically. In the management of a palpable breast mass, a negative mammogram must not discourage biopsy of a clinically suspicious lesion. Electronically Signed By: Werner Villarreal acr/tori:03/01/2022 11:50:44 letter sent: Normal Exam ACR BI-RADS Category 1: Negative [id number]
== END ==
PROVIDERS: PCP Nurse Practitioner; Referring Provider Nurse Practitioner; Visit Provider Nurse Practitioner
DX: Z12.31 Encounter for screening mammogram for malignant neoplasm of breast (principal)
CPT/HCPCS: 77063; 77067

== ENCOUNTER → 2022-07-11 08:33 | Outpatient (CLI) | payer OTHER, SELFPAY ==
[2022-07-11 10:51] LABS: Alanine Aminotransferase 17 IU/L (<35); Albumin 3.7 g/dL (3.5-5.0); Albumin Globulin Ratio 1.3 (1.0-2.8); Alkaline Phosphatase 56 U/L (38-126); Aspartate Aminotransferase 21 IU/L (14-36); BUN Creatinine Ratio 17.1 (6-22); Bilirubin Total 0.4 mg/dL (0.2-1.3); Blood Urea Nitrogen 20 mg/dL (7-17); Calcium 8.8 mg/dL (8.4-10.2); Carbon Dioxide 28 mmol/L (22-32); Chloride 106 mmol/L (98-107); Cholesterol 259 mg/dL (140-199); Estimated Glomerular Filt Rate 47 mL/min (>60); Globulin 2.9 g/dL (1.7-4.1); Glucose 88 mg/dL (80-110); HDL Cholesterol 44 mg/dL (40-60); HEMOLYSIS < 15 (0-50); LDL Cholesterol Calculated 186 mg/dL (<100); Potassium 4.2 mmol/L (3.4-5.1); Sodium 142 mmol/L (137-145); Total Protein 6.6 g/dL (6.3-8.2); Triglycerides 147 mg/dL (35-150)
[2022-07-11 11:09] LABS: Thyroid Stimulating Hormone 6.86 uIU/mL (0.47-4.68)
[2022-07-11 11:33] LABS: Creatinine Urine Random 111.9 mg/dL
[2022-07-11 12:07] LABS: Microalbumi Creatinin Ratio Ur 193.9 ug/mg CR (<30); Microalbumin Urine Random 21.7 mg/dL (0-1.6)
== END ==
PROVIDERS: PCP Nurse Practitioner; Referring Provider Nurse Practitioner; Visit Provider Nurse Practitioner
DX: E78.2 Mixed hyperlipidemia (principal); E03.9 Hypothyroidism, unspecified; F32.A Depression, unspecified; Z79.899 Other long term (current) drug therapy
CPT/HCPCS: 36415; 80053; 80061; 82043; 82570; 84443

== ENCOUNTER → 2022-09-04 13:06 | Outpatient (CLI) | payer OTHER, SELFPAY ==
[2022-09-04 14:15] LABS: Appearance Urine UA SL CLOUDY; Bilirubin Urine UA NEGATIVE (NEGATIVE); Color Urine UA YELLOW; Glucose Urine UA NEGATIVE (Negative); Ketones Urine UA NEGATIVE (NEGATIVE); Leukocyte Esterase Urine UA 3+ (NEGATIVE); Nitrite Urine UA NEGATIVE (Negative); Occult Blood Urine UA NEGATIVE (Negative); Protein Urine UA NEGATIVE (Negative); Urobilinogen Urine UA 0.2 E.U./dL (0.2)
[2022-09-04 14:56] LABS: Bacteria Urine Few (2-10); Culture Indicated Urine Specimen Cultured; RBC Urine None Seen (0-5/HPF); Squamous Epithelial Cell Urine 0-1 /HPF (0-5/HPF); Transitional Epi Cells Urine 1-5/HPF (0-5/HPF); WBC Urine 10-30/HPF (0-5/HPF)
== END ==
PROVIDERS: PCP Nurse Practitioner; Referring Provider Nurse Practitioner; Visit Provider Nurse Practitioner
DX: R30.0 Dysuria (principal)
CPT/HCPCS: 81001; 87086

== ENCOUNTER → 2022-09-22 09:00 | Outpatient (CLI) | payer OTHER, SELFPAY ==
[2022-09-22 09:40] LABS: Alanine Aminotransferase 20 IU/L (<35); Albumin Globulin Ratio 1.3 (1.0-2.8); Alkaline Phosphatase 66 U/L (38-126); Aspartate Aminotransferase 21 IU/L (14-36); BUN Creatinine Ratio 14.3 (6-22); Bilirubin Total 0.5 mg/dL (0.2-1.3); Blood Urea Nitrogen 15 mg/dL (7-17); Calcium 8.8 mg/dL (8.4-10.2); Carbon Dioxide 28 mmol/L (22-32); Chloride 104 mmol/L (98-107); Estimated Glomerular Filt Rate 53 mL/min (>60); Globulin 3.1 g/dL (1.7-4.1); Glucose 97 mg/dL (80-110); HEMOLYSIS < 15 (0-50); Potassium 4.2 mmol/L (3.4-5.1); Sodium 139 mmol/L (137-145); Total Protein 7.1 g/dL (6.3-8.2)
[2022-09-22 10:12] LABS: Thyroid Stimulating Hormone 3.43 uIU/mL (0.47-4.68)
[2022-09-22 10:48] LABS: Appearance Urine UA SL CLOUDY; Bilirubin Urine UA NEGATIVE (NEGATIVE); Color Urine UA YELLOW; Glucose Urine UA NEGATIVE (Negative); Ketones Urine UA NEGATIVE (NEGATIVE); Leukocyte Esterase Urine UA 3+ (NEGATIVE); Nitrite Urine UA NEGATIVE (Negative); Occult Blood Urine UA TRACE-LYSED (Negative); Protein Urine UA 1+ (Negative); Specific Gravity Urine UA 1.015 (1.000-1.035); Urobilinogen Urine UA 0.2 E.U./dL (0.2)
[2022-09-22 10:49] LABS: Bacteria Urine Few (2-10); Culture Indicated Urine Specimen Cultured; RBC Urine 0-1/HPF (0-5/HPF); Squamous Epithelial Cell Urine 1-5 /HPF (0-5/HPF); WBC Urine 5-10/HPF (0-5/HPF); pH Urine UA 7.5 (4.5-8.0)
[2022-09-22 11:23] LABS: Creatinine Urine Random 181.2 mg/dL
[2022-09-22 11:27] LABS: Microalbumi Creatinin Ratio Ur 39.7 ug/mg CR (<30); Microalbumin Urine Random 7.2 mg/dL (0-1.6)
== END ==
PROVIDERS: PCP Nurse Practitioner; Referring Provider Nurse Practitioner; Visit Provider Nurse Practitioner
DX: E03.9 Hypothyroidism, unspecified (principal); N28.9 Disorder of kidney and ureter, unspecified; R80.9 Proteinuria, unspecified; R30.0 Dysuria
CPT/HCPCS: 36415; 80053; 81001; 82043; 82570; 84443; 87086

== ENCOUNTER → 2022-10-06 10:24 | Outpatient (CLI) | payer OTHER, SELFPAY ==
--- NOTE | 2022-10-06 10:25 | DI.CT.S_ITS ---
PROCEDURE: CT HEAD/BRAIN WO CON INDICATIONS: left arm and hand weakness TECHNIQUE: Noncontrast 4.5 mm thick angled axial sections acquired from the foramen magnum to the vertex, with coronal and sagittal reformats. For radiation dose reduction, the following was used: automated exposure control, adjustment of mA and/or kV according to patient size. COMPARISON: None. FINDINGS: Image quality: Excellent. CSF spaces: Basal cisterns are patent. No extra-axial fluid collections. The ventricles are symmetric in size and shape. Brain: No intracranial bleeds or masses. There is cerebral volume loss for age, with resultant ventricular and sulcal prominence. There are periventricular and deep white matter chronic small vessel ischemic changes. There is intracranial internal carotid artery atherosclerosis. Skull and face: Calvarium and visualized facial bones appear intact, without suspicious lesions. Incidental note is made of hyperostosis frontalis. This is not considered to be pathologic in a woman of this age. Sinuses: Visualized sinuses and mastoids are clear. 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 IMPRESSION: Unremarkable noncontrast head CT for age, without a cause of the patient's presenting history identified. If it would be helpful for clinical management decision making, please consider a dedicated, scheduled brain MRI (without and with contrast) for further evaluation (assuming that there is no contraindication). Dictated by: Dionte Al M.D. on 10/06/2022 at 11:21 Approved by: Dionte Al M.D. on 10/06/2022 at 11:22
== END ==
PROVIDERS: PCP Nurse Practitioner; Referring Provider Nurse Practitioner; Visit Provider Nurse Practitioner
DX: I65.23 Occlusion and stenosis of bilateral carotid arteries (principal); R29.898 Other symptoms and signs involving the musculoskeletal system
CPT/HCPCS: 70450

== ENCOUNTER → 2022-11-17 11:41 | Outpatient (CLI) | payer OTHER, SELFPAY ==
--- NOTE | 2022-11-17 | DI.MRI.S_ITS ---
PROCEDURE: MR HAND LT WO CON INDICATIONS: LEFT HAND WEAKNESS TECHNIQUE: Noncontrast coronal T1 spin echo and T2 fast spin echo with fat saturation, axial proton density fast spin echo and T2 fast spin echo with fat saturation, sagittal T1 spin echo and STIR through the hand and fingers. COMPARISON: None. FINDINGS: Image quality: Excellent. Bones: The bones are normally aligned, without marrow contusions or fractures. No intra-osseous lesions. Mild degenerative changes are seen at the 1st carpometacarpal joint. Soft tissues: There is severe atrophy and fatty infiltration of the inner musculature and the more radial sided intrinsic hand muscles. The distal forearm musculature is not well seen. The visualized flexor and extensor tendons are intact. The median nerve is normal in size at the level of the carpal tunnel. No significant bowing of the flexor retinaculum. No mass is seen in the carpal tunnel or along the course of the median nerve. IMPRESSION: Severe atrophy and severe fatty infiltration of the thenar musculature and radial sided intrinsic hand muscles, which is suspicious for chronic denervation changes that appear to be within the median nerve distribution. Median nerve is normal in size within the wrist and hand without extrinsic compression. Normal appearance of the carpal tunnel. Recommend clinical correlation. More proximal imaging could also be performed along the course of the median nerve. Approved by: Charly Johnson M.D. on 11/17/2022 at 15:36
== END ==
PROVIDERS: PCP Nurse Practitioner; Referring Provider Orthopaedic Surgery; Visit Provider Orthopaedic Surgery
DX: M62.542 Muscle wasting and atrophy, not elsewhere classified, left hand (principal); R29.898 Other symptoms and signs involving the musculoskeletal system
CPT/HCPCS: 73218

== ENCOUNTER → 2023-09-03 14:23 | Outpatient (CLI) | payer OTHER, SELFPAY | PROVIDERS: PCP Nurse Practitioner; Visit Provider Specialist | DX: N95.2 Postmenopausal atrophic vaginitis (principal); N39.46 Mixed incontinence; N81.10 Cystocele, unspecified; R39.9 Unspecified symptoms and signs involving the genitourinary system | CPT/HCPCS: 51798; 81002; 87086; 99214 ==

== ENCOUNTER 2023-11-04 13:13 | Emergency (ER) | payer OTHER, SELFPAY ==
[2023-11-04 13:20] VITALS: BP 159/96; PULSE 78; RESP 18; TEMP 36.2; O2SAT 97; BMI 35.7
--- NOTE | 2023-11-04 13:25 | DI.RAD.S_ITS ---
PROCEDURE: XR KNEE RT 3V INDICATIONS: pain/swelling TECHNIQUE: 3 views of the knee were acquired. COMPARISON: None. FINDINGS: Bones: No fractures or dislocations. No suspicious bony lesions. There is moderate medial femorotibial joint space narrowing seen, with associated remodeling changes including subchondral sclerosis and osteophyte formation along the jointline. On the sunrise view, there is mild patellofemoral joint space narrowing seen. Osteophyte formation can be seen along the margins of the patella. Soft tissues: There is a moderate joint effusion. No suspicious soft tissue calcifications. IMPRESSION: Moderate joint effusion and underlying degenerative changes are seen. No acute plain film abnormality is seen. If it would be helpful for clinical management decision making, please consider a dedicated, scheduled knee MRI for further evaluation (assuming that there is no contraindication). Dictated by: Dionte Al M.D. on 11/04/2023 at 12:57 Approved by: Dionte Al M.D. on 11/04/2023 at 12:58
[2023-11-04 13:44] VITALS: PULSE 74
--- NOTE | 2023-11-04 14:53 | ED.EXTPRO ---
HPI - Extremity Problem <Jethro AnnJAIME rowley - Last Filed: 11/04/23 15:21> General Chief complaint: Extremity Problem,Nontraumatic Stated complaint: R/ Knee and leg swollen and painful Time Seen by Provider: 11/04/23 13:43 Source: patient Mode of arrival: Ambulatory History of Present Illness HPI Narrative: 83-year-old female, never smoker, presents to the emergency department with right knee pain x2 months. Patient denies any fall or injury to the right leg, but has noticed sensation of fullness in her knee that can extend up to her right buttock. No home treatment. Patient did take 400 mg of ibuprofen earlier today with no improvement. No history of similar complaints. Related Data Home Medications Medication Instructions Recorded Confirmed d-mannose 500 mg capsule 1,500 mg PO DAILY 08/12/21 02/07/23 omega-3 fatty acids 1,000 mg 1,000 mg PO BID 08/12/21 02/07/23 capsule (Fish Oil Concentrate) cranberry 400 mg capsule 400 mg PO QID 10/18/22 02/07/23 multivitamin 1 tab PO DAILY 11/08/22 02/07/23 Previous Rx's Medication Instructions Recorded calcium carbonate 600 mg-vitamin 1 tab PO BID #1 tab 08/12/21 D3 20 mcg (800 unit) tablet propranolol 10 mg tablet 10 mg PO BID #60 tabs 10/18/22 ospemifene 60 mg tablet (Osphena) 60 mg PO DAILY #90 tabs 11/16/22 allopurinol 100 mg tablet 100 mg PO QDAY #90 tabs 09/18/23 estradiol 0.01% (0.1 mg/gram) See Rx Instructions vaginal 09/18/23 vaginal cream .COMPLEX #42.5 grams bupropion HCl 150 mg 24 hr tablet, 150 mg PO QAM #90 tabs 10/26/23 extended release levothyroxine 100 mcg tablet See Rx Instructions .Route 10/26/23 .COMPLEX #90 tabs Allergies Allergy/AdvReac Type Severity Reaction Status Date / Time clarithromycin Allergy Intermediate Trouble Verified 02/07/23 10:35 breathing Reamhwy-GAQ-XoH Reductase AdvReac Severe MUSCLE Verified 02/07/23 10:35 Inhibitor ACHES & [[id number] REDUCTASE LIVER INHIBITOR] PROBLEMS Sulfa (Sulfonamide AdvReac Severe RASH ALL Verified 02/07/23 10:35 Antibiotics) OVER BODY [SULFA (SULFONAMIDE ANTIBIOTICS)] trimethoprim [TRIMETHOPRIM] AdvReac Severe SEVERE Verified 02/07/23 10:35 RASH ALL OVER BODY pseudoephedrine AdvReac Intermediate RASH, Verified 02/07/23 10:35 [From SUDAFED] ITCHING AND PEELING ON HANDS AND FEET Review of Systems <JAIME Santos - Last Filed: 11/04/23 15:21> Review of Systems Narrative: Narrative: See HPI. GENERAL: Denies chills, fatigue, fever, sweats. HEENT: Denies sinus pain, ear pain, sore throat, difficulty swallowing, dizziness. RESPIRATORY: Denies dyspnea, cough, wheezing, sputum. CARDIOVASCULAR: Denies chest pain, palpitations, edema. GASTROINTESTINAL: Denies nausea, vomiting, abdominal pain, diarrhea, constipation. : Denies dysuria, frequency, incontinence, hematuria, urinary retention, flank pain. MSK: Denies weakness. Endorses right knee pain. SKIN: Denies rash, skin lesions, or pruritis. NEUROLOGIC: Denies weakness, dizziness, headache, numbness, confusion. PSYCHIATRIC: No concerning psychosocial issues. Patient History <JAIME Santos - Last Filed: 11/04/23 15:21> Medical History Mixed incontinence KVNG (stress urinary incontinence, female) Lower urinary tract symptoms (LUTS) Cystocele, unspecified Postmenopausal atrophic vaginitis Spinal stenosis Back pain Osteopenia (~2016) Polio (1944) Gout Hypothyroidism Hyperlipemia Surgical History Status post appendectomy Family History Father Heart disease Hyperlipidemia Mother Hypertension Social History marital status: number of children: 3 Smoking Status: Never smoker alcohol intake: never substance use type: does not use Smoking Status: Never smoker Substance Use Type: does not use Exam <JAIME Santos - Last Filed: 11/04/23 15:21> Narrative Exam Narrative: Exam Narrative: GENERAL: This is a well-nourished, well-developed patient, in no acute distress. HEAD: Atraumatic. Normocephalic. EYES: Pupils equal round and reactive. No scleral icterus, injection or drainage. ENT: Nose without bleeding, purulent drainage. Airway patent. NECK: Trachea midline. No JVD or lymphadenopathy. Nontender. CARDIOVASCULAR: Regular rate and rhythm without murmurs, peripheral pulses intact, cap refill <2 sec. RESPIRATORY: Normal respiratory rate and effort. MSK: Moves all extremities. Normal range of motion, no clubbing or edema. Neurovascularly intact. NEURO: A&O x 3. SKIN: Warm, dry, no rashes or lesions noted. KNEE: There is no swelling, bruising or asymmetry. There is no tenderness to general palpation. There is no joint line tenderness. There is no patellar tenderness. There is no popliteal fullness. Patella tracks normally. Range of motion is limited due to pain. Resistive strength for flexion and extension is intact. Collateral and cruciate ligaments are intact. Drawer, Jeanna and Lever Tests are negative. Gait is unremarkable. The contralateral knee exam is unremarkable. Initial Vital Signs Initial Vital Signs: Vital Signs Temperature 97.2 F L 11/04/23 13:20 Pulse Rate 78 11/04/23 13:20 Respiratory Rate 18 11/04/23 13:20 Blood Pressure 159/96 H 11/04/23 13:20 Pulse Oximetry 97 11/04/23 13:20 Oxygen Delivery Method Room Air 11/04/23 13:20 Reviewed <Jethro Joaquin DO - Last Filed: 11/04/23 15:22> Initial Vital Signs Initial Vital Signs: Vital Signs Temperature 97.2 F L 11/04/23 13:20 Pulse Rate 78 11/04/23 13:20 Respiratory Rate 18 11/04/23 13:20 Blood Pressure 159/96 H 11/04/23 13:20 Pulse Oximetry 97 11/04/23 13:20 Oxygen Delivery Method Room Air 11/04/23 13:20 Course <JAIME Santos - Last Filed: 11/04/23 15:21> Orders Ordered: ED Orders 11/04/23 13:25 XR knee RT 3V Stat Vital Signs Vital signs: Vital Signs - 8 hr 11/04/23 13:20 11/04/23 13:44 Temperature 97.2 F L Pulse Rate 78 Pulse Rate [Right Dorsalis Pedis] 74 Respiratory Rate 18 Blood Pressure 159/96 H Pulse Oximetry 97 Oxygen Delivery Method Room Air <Jethro Joaquin DO - Last Filed: 11/04/23 15:22> Orders Ordered: ED Orders 11/04/23 13:25 XR knee RT 3V Stat Vital Signs Vital signs: Vital Signs - 8 hr 11/04/23 13:20 11/04/23 13:44 Temperature 97.2 F L Pulse Rate 78 Pulse Rate [Right Dorsalis Pedis] 74 Respiratory Rate 18 Blood Pressure 159/96 H Pulse Oximetry 97 Oxygen Delivery Method Room Air MDM - Extremity (Nontraumatic) <JAIME Santos - Last Filed: 11/04/23 15:21> Differential Diagnosis Differential diagnosis: Likely lower extremity edema; Unlikely cellulitis Imaging Data Extremity x-ray #1: Radiologist's Impression: [address] [address] XRay Report Signed Patient: Silvia Gamboa MR#: [id number] : 1940 Acct:[id number] Age/Sex: 83 / F Date of Service: 11/04/23 Loc: ED Accession Number: [id number] Procedure: XR knee RT 3V Ordering Provider: Jethro Joaquin D.O. PROCEDURE: XR KNEE RT 3V INDICATIONS: pain/swelling TECHNIQUE: 3 views of the knee were acquired. COMPARISON: None. FINDINGS: Bones: No fractures or dislocations. No suspicious bony lesions. There is moderate medial femorotibial joint space narrowing seen, with associated remodeling changes including subchondral sclerosis and osteophyte formation along the jointline. On the sunrise view, there is mild patellofemoral joint space narrowing seen. Osteophyte formation can be seen along the margins of the patella. Soft tissues: There is a moderate joint effusion. No suspicious soft tissue calcifications. IMPRESSION: Moderate joint effusion and underlying degenerative changes are seen. No acute plain film abnormality is seen. If it would be helpful for clinical management decision making, please consider a dedicated, scheduled knee MRI for further evaluation (assuming that there is no contraindication). Dictated by: Dionte Al M.D. on 11/04/2023 at 12:57 Approved by: Dionte Al M.D. on 11/04/2023 at 12:58 [facility] Narrative Medical decision making narrative: 83-year-old female with right knee fullness. Assessment was encouraging and x-ray was normal. No symptoms of DVT. Recommended supportive care to include Rest (modified activity), along with ice or heat, compression wrap/ self-massage and elevation above heart. Tylenol or Ibuprofen for discomfort. Patient was concerned about taking 600 mg of ibuprofen and therefore recommended 400 mg of ibuprofen t.i.d. for the next 3 days, and if symptoms do not improve, to increased dosage to 600 mg. Patient has an appointment with family doctor later this month and will follow up at that time. Discussed plan of care and worsening symptoms that would necessitate a visit to the emergency department. Patient verbalized understanding and was agreeable to course of action. Discharge Plan Departure Patient Disposition: Home Clinical Impression: Acute pain of right knee Instructions: DI for Knee Pain Activity Restrictions/Additional Instructions: *You have been diagnosed with right leg swelling. My assessment was encouraging and the x-rays revealed no fracture dislocation. I suspect this is musculoskeletal in nature and will treat this with Rest (modified activity), along with ice or heat, compression wrap/massage and elevation above heart. Tylenol or Ibuprofen for discomfort. You may begin with 400 mg of ibuprofen 3 times a day, and if symptoms do not improve after 3 days, may increase the dosage to 600 mg of ibuprofen 3 times a day. Please follow-up with your family doctor as previously scheduled and return to the emergency department if symptoms worsen. *What to do: *Please continue to take your regular medications as directed. [ ] New medication prescriptions sent to your pharmacy: [ ] [ ] New medication written as a paper prescription [x ] No new medications given *Please follow up with your primary care provider in 2-3 days, call for an appointment. Let them know you were seen in the Emergency Department and that we ask that you be seen in follow up. We will electronically transmit a record of today's note if your PCP is in our system *If you do not have a primary care provider please contact the [facility] Resource line at [phone]. They will ask some questions about your medical history and help get you set up with a doctor in the community. ? Return to ER if you should have any new, worsening or concerning symptoms, such as worsening pain, severe headache, confusion, chest pain, difficulty breathing, fever greater than 101 F, shaking chills, persistent vomiting to the point that you cannot drink fluids, or other new or worsening symptoms. Prescriptions: No Action Osphena 60 mg tablet 60 mg PO DAILY Qty: 90 3RF Rx Instructions: must administer with food, preferably a high-fat meal estradiol 0.01 % (0.1 mg/gram) cream See Rx Instructions vaginal .COMPLEX Qty: 42.5 0RF Rx Instructions: Insert 0.5gm in vagina and small amount to urethral opening twice weekly allopurinol 100 mg tablet 100 mg PO QDAY Qty: 90 0RF levothyroxine 100 mcg tablet See Rx Instructions .ROUTE .COMPLEX Qty: 90 3RF Dose Instruction: Take 1 tablet (0.1 mg) by mouth every morning Rx Instructions: Take 1 tablet (0.1 mg) by mouth every morning bupropion HCl 150 mg tablet extended release 24 hr 150 mg PO QAM Qty: 90 0RF Rx Instructions: Take 1 tab each morning for depression d-mannose 500 mg capsule 1,500 mg PO DAILY calcium carbonate-vitamin D3 600 mg(1,500mg) -800 unit tablet 1 tab PO BID Qty: 1 0RF omega-3 fatty acids [Fish Oil Concentrate] 1,000 mg capsule 1,000 mg PO BID propranolol 10 mg tablet 10 mg PO BID Qty: 60 3RF Rx Instructions: Take 1 tab up to twice daily for worsening anxiety/panic attack, may repeat once, max dose 2/day cranberry 400 mg capsule 400 mg PO QID Rx Instructions: give with meal/snack multivitamin Tablet 1 tab PO DAILY Referrals: Nora Osborne ARNP [Primary Care Provider] - Stand Alone Forms: Patient Portal/API ED Sign-out <Jethro Joaquin, - Last Filed: 11/04/23 15:22> [facility] Dr Joaquin Co-Sign Statement: I was available for consultation during this patient's emergency department visit. This chart is signed by myself for administrative purposes only. I did not have direct contact with this patient during this visit. They were seen independently by the APC.
--- NOTE | 2023-11-04 15:13 | PC.NURSE ---
provider at bedside
== END 2023-11-04 15:23 | disposition home or self-care (01) ==
PROVIDERS: Emergency Provider Registered Nurse; PCP Nurse Practitioner
DX: M25.561 Pain in right knee (principal)
CPT/HCPCS: 73562; 99281; 99282

== ENCOUNTER → 2023-11-17 10:41 | Outpatient (CLI) | payer OTHER, SELFPAY ==
--- NOTE | 2023-11-17 10:43 | DI.MRI.S_ITS ---
PROCEDURE: MR KNEE RT WO CON INDICATIONS: moderate joint effusion, degenerative changes, right knee px TECHNIQUE: Noncontrast sagittal PD fast spin echo and T2 fast spin echo with fat saturation, sagittal 3-D FLASH with fat saturation; coronal T1 spin echo and PD fast spin echo with fat saturation, and axial PD fast spin echo with fat saturation through the knee. COMPARISON: [facility], CR, XR KNEE RT 3V, 11/04/2023, 13:41. FINDINGS: Image quality: Excellent. Menisci: Medial and lateral meniscal extrusions. There is oblique tear of the free edge of the posterior horn of the medial meniscus. There is complex tear of the body of the medial meniscus. There is complex tear involving the anterior horn, body and posterior horn of the lateral meniscus. Cruciate ligaments: The anterior and posterior cruciate ligaments appear intact. Medial structures: The medial collateral ligament appears intact. The semimembranosus tendon insertions and meniscocapsular junction appear intact. Visualized portions of the pes anserinus tendons appear normal. No abnormal bursal fluid. Lateral structures: The lateral collateral ligament and the biceps femoris tendon appear intact. The popliteus tendon appears normal. Iliotibial band appears normal. Anterior structures: There is quadriceps and patellar tendons appear intact. There is low-grade quadriceps tendinitis and patellar tendinitis. Patellar alignment is normal. No femoral trochlear dysplasia or ventral trochlear prominence. No edema in the infrapatellar fat pad. Bones and cartilage: No bone marrow contusions or fractures. There is tricompartmental cartilage thinning and fibrillation. Joint space: There is moderate knee joint effusion. There is a moderate sized Maria's cyst. Normal appearing synovial plicae are incidentally noted. IMPRESSION: 1. Medial meniscal tear with oblique tear involving the posterior horn and and complex tear body. 2. Large complex tear of the lateral meniscus. 3. Low-grade quadriceps tendinitis and patellar tendinitis. 4. Tricompartmental cartilage thinning and fibrillation. 5. Moderate knee joint effusion. 6. A moderate sized Maria's cyst appears Dictated by: Mark Barrera M.D. on 11/19/2023 at 11:50 Approved by: Mark Barrera M.D. on 11/19/2023 at 20:44
== END ==
LOC: MRI 10:42
PROVIDERS: PCP Nurse Practitioner; Referring Provider Nurse Practitioner; Visit Provider Nurse Practitioner
DX: S83.271A Complex tear of lateral meniscus, current injury, right knee, initial encounter (principal); S83.241A Other tear of medial meniscus, current injury, right knee, initial encounter; M76.51 Patellar tendinitis, right knee; M25.461 Effusion, right knee; M25.561 Pain in right knee
CPT/HCPCS: 73721

== ENCOUNTER → 2023-11-21 11:02 | Outpatient (CLI) | payer OTHER, SELFPAY ==
[2023-11-21 11:44] LABS: Alanine Aminotransferase 17 IU/L (<35); Albumin 3.9 g/dL (3.5-5.0); Albumin Globulin Ratio 1.2 (1.0-2.8); Alkaline Phosphatase 63 U/L (38-126); Aspartate Aminotransferase 22 IU/L (14-36); BUN Creatinine Ratio 17.8 (6-22); Bilirubin Total 0.6 mg/dL (0.2-1.3); Blood Urea Nitrogen 19 mg/dL (7-17); Calcium 9.1 mg/dL (8.4-10.2); Carbon Dioxide 25 mmol/L (22-32); Chloride 108 mmol/L (98-107); Cholesterol 257 mg/dL (140-199); Estimated Glomerular Filt Rate 52 mL/min (>60); Globulin 3.3 g/dL (1.7-4.1); Glucose 99 mg/dL (80-110); HDL Cholesterol 40 mg/dL (40-60); HEMOLYSIS < 15 (0-50); LDL Cholesterol Calculated 184 mg/dL (<100); Potassium 4.3 mmol/L (3.4-5.1); Sodium 141 mmol/L (137-145); Total Protein 7.2 g/dL (6.3-8.2); Triglycerides 163 mg/dL (35-150)
[2023-11-21 12:15] LABS: Thyroid Stimulating Hormone 2.97 uIU/mL (0.47-4.68)
[2023-11-21 18:32] LABS: Creatinine Urine Random 129.8 mg/dL
[2023-11-21 18:37] LABS: Microalbumin Urine Random < 0.6 mg/dL (0-1.6)
== END ==
PROVIDERS: PCP Nurse Practitioner; Referring Provider Nurse Practitioner; Visit Provider Nurse Practitioner
DX: E03.9 Hypothyroidism, unspecified (principal); E78.2 Mixed hyperlipidemia; I70.0 Atherosclerosis of aorta; F32.A Depression, unspecified; R80.9 Proteinuria, unspecified; Z79.899 Other long term (current) drug therapy
CPT/HCPCS: 36415; 80053; 80061; 82043; 82570; 84443

== ENCOUNTER → 2024-01-22 09:59 | Outpatient (CLI) | payer OTHER, SELFPAY ==
[2024-01-22 10:58] LABS: Alanine Aminotransferase 16 IU/L (<35); Albumin 3.9 g/dL (3.5-5.0); Albumin Globulin Ratio 1.5 (1.0-2.8); Alkaline Phosphatase 57 U/L (38-126); Aspartate Aminotransferase 19 IU/L (14-36); BUN Creatinine Ratio 22.3 (6-22); Bilirubin Total 0.7 mg/dL (0.2-1.3); Blood Urea Nitrogen 23 mg/dL (7-17); Calcium 8.8 mg/dL (8.4-10.2); Carbon Dioxide 23 mmol/L (22-32); Chloride 110 mmol/L (98-107); Cholesterol 189 mg/dL (140-199); Estimated Glomerular Filt Rate 54 mL/min (>60); Globulin 2.6 g/dL (1.7-4.1); Glucose 92 mg/dL (80-110); HDL Cholesterol 48 mg/dL (40-60); HEMOLYSIS 31 (0-50); LDL Cholesterol Calculated 117 mg/dL (<100); Potassium 4.3 mmol/L (3.4-5.1); Sodium 140 mmol/L (137-145); Total Protein 6.5 g/dL (6.3-8.2); Triglycerides 120 mg/dL (35-150)
== END ==
PROVIDERS: PCP Nurse Practitioner; Referring Provider Nurse Practitioner; Visit Provider Nurse Practitioner
DX: E78.5 Hyperlipidemia, unspecified (principal); Z79.899 Other long term (current) drug therapy
CPT/HCPCS: 36415; 80053; 80061

== ENCOUNTER → 2024-02-12 14:29 | Outpatient (CLI) | payer OTHER, SELFPAY ==
--- NOTE | 2024-02-12 14:30 | DI.MG.S_ITS ---
BILATERAL DIGITAL SCREENING MAMMOGRAM 3D/2D WITH CAD: 02/12/2024 CLINICAL: Routine screening. Comparison is made to exams dated: 03/01/2022 mammogram, 02/19/2021 mammogram, and 10/29/2019 mammogram - [facility]. There are scattered areas of fibroglandular density in both breasts (category b / 25%-50% glandular tissue). Current study was also evaluated with a Computer Aided Detection (CAD) system. There is an asymmetry in the left breast anterior depth upper region seen on the mediolateral oblique view only. No other significant masses, calcifications, or other findings are seen in either breast. IMPRESSION: INCOMPLETE: NEEDS ADDITIONAL IMAGING EVALUATION The asymmetry in the left breast is indeterminate. A diagnostic mammogram and ultrasound are recommended for further evaluation. Based on the Tyrer Cuzick model (a risk assessment model) the patient's lifetime risk is 0.4% and her 10 year risk is 0.0%. According to the ACR, ACS, and NCCN guidelines, an annual breast MRI exam along with mammogram is recommended if the patient's lifetime risk is 20% or greater. This exam was interpreted at Station ID: [id number]. NOTE: For mammograms, a report in lay terms will be sent to the patient. Approximately 15% of breast malignancies will not be visualized mammographically. In the management of a palpable breast mass, a negative mammogram must not discourage biopsy of a clinically suspicious lesion. Electronically Signed By: Radha Yee M.D., Ph.D. eb/:02/13/2024 13:41:43 letter sent: Additional Imaging Needed ACR BI-RADS Category 0: Incomplete 3340F
--- NOTE | 2024-02-12 15:30 | DI.RAD.S_ITS ---
PROCEDURE: XR DEXA AXIAL SKELETON INDICATIONS: osteoporosis COMPARISON: [facility], CR, XR DEXA AXIAL SKELETON, 06/03/2020, 14:00. FINDINGS: Lumbar Spine: Bone mineral density 0.982 g/cm2, T score -0.3, normal. Left Hip: Bone mineral density 0.812 g/cm2, T score -1.1, osteopenia. Left Femoral Neck: Bone mineral density is 0.725 g/cm2, T score -1.1, osteopenia. Right Hip: Bone mineral density 0.759 g/cm2, T score -1.5, osteopenia. Right Femoral Neck: Bone mineral density 0.661 g/cm2, T score -1.7, osteopenia. Fracture Risk Calculation (when applicable): 10-year fracture risk of a major osteoporotic fracture 11-13% and of a hip fracture 2.4-3.3%.. (T score greater or equal to -1.0 to: NORMAL) (T score from -1.1 to -2.4: OSTEOPENIA) (T score less than or equal to -2.5: OSTEOPOROSIS) IMPRESSION: 1. Based on WHO criteria, the patient has osteopenia and increased risk for osteoporotic fractures. 2. Because of dissimilar scan types or analysis methods, the statistical significance of bone mineral density change between prior and current scans cannot be assessed. Follow-up guidelines as follows: Osteoporosis: Consider a repeat DEXA and Vertebral Fracture Assessment (VFA) exam in 2 years or sooner if medically necessary, to reassess this patient's status. Osteopenia: Consider a repeat DEXA in 2-3 years to reassess this patient's status, or if there is a new clinical indication. Normal: Consider a repeat DEXA in 5 years or sooner, or if there is a new clinical indication. Dictated by: Mark Barrera M.D. on 02/12/2024 at 16:59 Approved by: Mark Barrera M.D. on 02/12/2024 at 17:04
== END ==
PROVIDERS: PCP Nurse Practitioner; Referring Provider Nurse Practitioner; Visit Provider Nurse Practitioner
DX: Z12.31 Encounter for screening mammogram for malignant neoplasm of breast (principal); M81.0 Age-related osteoporosis without current pathological fracture; R92.323 Mammographic fibroglandular density, bilateral breasts
CPT/HCPCS: 77063; 77067; 77080

== ENCOUNTER → 2024-02-29 10:13 | Outpatient (CLI) | payer OTHER, SELFPAY ==
--- NOTE | 2024-02-29 10:14 | DI.MG.S_ITS ---
UNILATERAL LEFT DIGITAL DIAGNOSTIC MAMMOGRAM 3D/2D WITH ADDITIONAL VIEWS: 02/29/2024 CLINICAL: Additional evaluation requested from prior study. Comparison is made to exams dated: 02/12/2024 mammogram, 03/01/2022 mammogram, 02/19/2021 mammogram, and 10/29/2019 mammogram - [facility]. There are scattered areas of fibroglandular density in the left breast (category b / 25%-50% glandular tissue). There is an asymmetry in the left breast anterior depth central to the nipple seen on the mediolateral oblique view only. No other significant masses or calcifications are seen in the breast. IMPRESSION: INCOMPLETE: NEEDS ADDITIONAL IMAGING EVALUATION The asymmetry in the left breast is indeterminate. A targeted ultrasound is recommended and will immediately follow. Based on the Tyrer Cuzick model (a risk assessment model) the patient's lifetime risk is 0.4% and her 10 year risk is 0.0%. According to the ACR, ACS, and NCCN guidelines, an annual breast MRI exam along with mammogram is recommended if the patient's lifetime risk is 20% or greater. This exam was interpreted at Station ID: [id number]. NOTE: For mammograms, a report in lay terms will be sent to the patient. Approximately 15% of breast malignancies will not be visualized mammographically. In the management of a palpable breast mass, a negative mammogram must not discourage biopsy of a clinically suspicious lesion. Electronically Signed By: Arnol Hopkins M.D. slc/:02/29/2024 10:42:01 ACR BI-RADS Category 0: Incomplete 3340F
--- NOTE | 2024-02-29 10:14 | DI.US.S_ITS ---
LIMITED ULTRASOUND OF LEFT BREAST: 02/29/2024 CLINICAL: Patient returns today to evaluate a focal asymmetry in the left breast. Comparison is made to exams dated: 02/29/2024 mammogram, 02/12/2024 mammogram, 03/01/2022 mammogram, 02/19/2021 mammogram, 10/29/2019 mammogram, and 12/17/2017 mammogram - [facility]. Color flow and real-time ultrasound of the left breast 3 o'clock, 9 o'clock, and retroareolar regions were performed. Mcnally scale images of the real-time examination were reviewed. No significant abnormalities were seen sonographically in the left breast. There is a curvilinear blood vessel in the region of interest that could explain the mammographic finding. IMPRESSION: BENIGN There is no sonographic evidence of malignancy. No mass or cyst. A 1 year screening mammogram is recommended. Exam findings were conveyed to the patient. This exam was interpreted at Station ID: [id number]. Electronically Signed By: Arnol Hopkins M.D. slc/:02/29/2024 11:29:31 letter sent: Normal Exam Ultrasound BI-RADS: 2 Benign
== END ==
PROVIDERS: PCP Nurse Practitioner; Referring Provider Nurse Practitioner; Visit Provider Nurse Practitioner
DX: R92.8 Other abnormal and inconclusive findings on diagnostic imaging of breast (principal); R92.322 Mammographic fibroglandular density, left breast
CPT/HCPCS: 76642; 77065; G0279

== ENCOUNTER → 2024-06-13 13:56 | Outpatient (CLI) | payer OTHER, SELFPAY ==
[2024-06-13 15:30] LABS: Add Manual Diff / Slide Review NO; Basophils Absolute Auto 100 /uL (0-100); Basophils Percent Auto 0.7 % (0-2); Eosinophils Absolute Auto 200 /uL (0-450); Eosinophils Percent Auto 1.9 % (2-4); Hematocrit 41.8 % (36-46); Lymphocytes Absolute Auto 2300 /uL (1100-4500); Lymphocytes Percent Auto 25.9 % (25-40); Mean Corpuscular HGB Conc 33.4 % (30-36); Mean Corpuscular Hemoglobin 31.2 PG (26-34); Mean Corpuscular Volume 93.4 fL (80-100); Monocytes Absolute Auto 600 /uL (0-900); Monocytes Percent Auto 7.2 % (3-14); Neutrophils Absolute Auto 5800 /uL (1500-7000); Neutrophils Percent Auto 64.3 % (50-75); Platelet Count 299 X10^3/uL (150-400); Red Blood Cell Count 4.48 X10^6/uL (4.0-5.2); Red Cell Distribution Width 14.7 % (11.6-14.8)
[2024-06-13 16:30] LABS: Alanine Aminotransferase 17 IU/L (<35); Albumin 3.9 g/dL (3.5-5.0); Albumin Globulin Ratio 1.6 (1.0-2.8); Alkaline Phosphatase 72 U/L (38-126); Aspartate Aminotransferase 21 IU/L (14-36); BUN Creatinine Ratio 20.7 (6-22); Bilirubin Total 0.5 mg/dL (0.2-1.3); Blood Urea Nitrogen 24 mg/dL (7-17); Calcium 9.7 mg/dL (8.4-10.2); Carbon Dioxide 27 mmol/L (22-32); Chloride 107 mmol/L (98-107); Estimated Glomerular Filt Rate 47 mL/min (>60); Globulin 2.5 g/dL (1.7-4.1); Glucose 104 mg/dL (80-110); HEMOLYSIS < 15 (0-50); Sodium 139 mmol/L (137-145); Total Protein 6.4 g/dL (6.3-8.2); Uric Acid 4.4 mg/dL (2.5-6.2)
== END ==
PROVIDERS: PCP Family Medicine; Referring Provider Family Medicine; Visit Provider Family Medicine
DX: N18.9 Chronic kidney disease, unspecified (principal); Z79.1 Long term (current) use of non-steroidal anti-inflammatories (NSAID); Z76.89 Persons encountering health services in other specified circumstances; E78.5 Hyperlipidemia, unspecified; E03.9 Hypothyroidism, unspecified
CPT/HCPCS: 36415; 80053; 84550; 85025

== ENCOUNTER → 2024-09-02 11:02 | Outpatient (CLI) | payer OTHER, SELFPAY | PROVIDERS: PCP Family Medicine; Visit Provider Urology | DX: N39.3 Stress incontinence (female) (male) (principal); R39.9 Unspecified symptoms and signs involving the genitourinary system | CPT/HCPCS: 51798; 81002; 87086; 99213 ==

== ENCOUNTER → 2025-03-04 08:45 | Outpatient (CLI) | payer OTHER, SELFPAY ==
[2025-03-04 10:20] LABS: Alanine Aminotransferase 18 IU/L (<35); Albumin Globulin Ratio 1.5 (1.0-2.8); Alkaline Phosphatase 60 U/L (38-126); Aspartate Aminotransferase 26 IU/L (14-36); BUN Creatinine Ratio 23.6 (6-22); Bilirubin Total 0.7 mg/dL (0.2-1.3); Blood Urea Nitrogen 21 mg/dL (7-17); Carbon Dioxide 26 mmol/L (22-32); Chloride 107 mmol/L (98-107); Cholesterol 259 mg/dL (140-199); Estimated Glomerular Filt Rate > 60 mL/min (>60); Globulin 2.6 g/dL (1.7-4.1); Glucose 91 mg/dL (70-99); HDL Cholesterol 47 mg/dL (40-60); HEMOLYSIS 57 (0-50); LDL Cholesterol Calculated 176 mg/dL (<100); Potassium 4.4 mmol/L (3.4-5.1); Sodium 139 mmol/L (137-145); Total Protein 6.6 g/dL (6.3-8.2); Triglycerides 179 mg/dL (35-150)
== END ==
PROVIDERS: PCP Family Medicine; Referring Provider Family Medicine; Visit Provider Family Medicine
DX: N18.9 Chronic kidney disease, unspecified (principal); Z79.1 Long term (current) use of non-steroidal anti-inflammatories (NSAID); E78.5 Hyperlipidemia, unspecified
CPT/HCPCS: 36415; 80053; 80061

== ENCOUNTER → 2025-03-24 14:58 | Outpatient (CLI) | payer OTHER, SELFPAY ==
--- NOTE | 2025-03-24 14:59 | DI.MG.S_ITS ---
MM screening mammo BI: 03/24/2025. BI-RADS: 1 CLINICAL: 84-year old female for bilateral screening mammogram. Tyrer-Cuzick lifetime risk of 0.2%. No personal or first-degree family history of breast cancer. PRIOR EXAMS 02/29/2024, 02/12/2024, 03/01/2022, 02/19/2021. MAMMOGRAPHY TECHNIQUE: 2D and 3D (tomosynthesis) digital mammographic views obtained, with additional images as needed for full coverage. Current study was also evaluated with a Computer Aided Detection (CAD) system. DENSITY B. There are scattered areas of fibroglandular density. MAMMOGRAPHY FINDINGS Bilateral: No suspicious mass, asymmetry, microcalcification, or other abnormality seen. IMPRESSION: * No evidence of malignancy. RECOMMENDATIONS Bilateral * Annual screening mammography. OVERALL ASSESSMENT CATEGORY BI-RADS-1: Negative. The [employer] recommends annual screening mammography beginning at age 40 for women with average risk of breast cancer. ELECTRONICALLY SIGNED: Fili Rendon M.D. on 03/25/2025 at 07:04:11 AM PT Interpreting Station ID: [id number]
== END ==
PROVIDERS: PCP Family Medicine; Referring Provider Family Medicine; Visit Provider Family Medicine
DX: Z12.31 Encounter for screening mammogram for malignant neoplasm of breast (principal)
CPT/HCPCS: 77063; 77067